=== PATIENT | female | born 1970 | race Caucasian/White ===

== ENCOUNTER 2024-03-10 10:38 | Emergency (ER) | payer MEDICAID, OTHER ==
[~2024-03-10] VITALS: Ht 157.5 cm; Wt 58.4 kg
[2024-03-10 11:06] VITALS: BP 144/88; PULSE 92; RESP 18; TEMP 98; O2SAT 97
[2024-03-10] MEDS ORDERED: AUG875T PO (12:22)
[2024-03-10] MEDS ORDERED: IBUP1TAB5 PO (12:22)
[2024-03-10] MEDS: TETANUS-DIPTH-ACEL PERTUSSIS 0.5ML SYR Tdap IM ONE (12:24)
[2024-03-10] MEDS: cefTRIAXone SOD 1,000 MG VL IM ONE (12:25)
== END 2024-03-10 12:47 | disposition home or self-care (01) ==
LOC: ER 10:38
DX: S62.616A Displaced fracture of proximal phalanx of right little finger, initial encounter for closed fracture (principal); Z88.5 Allergy status to narcotic agent; W55.01XA Bitten by cat, initial encounter; Y93.89 Activity, other specified; Y92.89 Other specified places as the place of occurrence of the external cause; Y99.8 Other external cause status
CPT/HCPCS: 29125; 73130; 90471; 90715; 96372; 99284; J0696

== ENCOUNTER 2024-08-15 07:02 | Emergency (ER) | payer MEDICAID ==
[~2024-08-15] VITALS: Ht 157.5 cm; Wt 57.9 kg
[~2024-08-15 07:02] MED LIST: AUG875T PO; IBUP1TAB5 PO
--- NOTE | 2024-08-15 08:00 | ED.PDOC ---
Zuleima. trauma (HPI) HPI Comments 54 year old female presents to the ED with chief complaint of left rib pain. Patient reports that she was moving around objects in her friend's home when her friend had accidentally dropped a karaoke machine down the stairs, hitting her left ribs 2 days ago. Patient relays that since then, she has had increased pain to the region over time. Patient denies any numbness, weakness, fall, SOB, chest pain, or further injury. Chief Complaint: Rib Pain Time Seen by MD: 07:58 Primary Care Provider: NONE Reviewed notes: Nurses Notes, Medications, Allergies Allergies: Coded Allergies: Fentanyl (Verified Allergy, Unknown, 03/10/24) Home Meds Active Scripts Ibuprofen Micronized (Ibuprofen) 600 Mg Tab, 600 MG PO TID for 10 Days, #30 TAB 0 Refills Prov:JOAN MAZARIEGOS NP 03/10/24 Amoxicillin & Pot Clavulanate (AUGMENTIN TABLET) 875 Mg Tb, 875 MG PO BID for 7 Days, #14 TAB 0 Refills Prov:JOAN MAZARIEGOS NP 03/10/24 Information Source: Patient Mode of Arrival: Wheelchair Severity: Moderate Timing: Days Duration: Since onset Prehospital treatment: None Location: Other (Left ribs) Mechanism: Direct blow Past Medical History PAST MEDICAL HISTORY: Denies Surgical History: Denies all surgeries ROLL CHANGER History: No Pertinent ROLL CHANGER History Family History Family History: Reviewed,noncontributory to illness Social History Smoker: Non-Smoker Alcohol: Denies ETOH Use Drugs: Denies Drug Use Lives In: Home Constitutional: denies: chills, diaphoresis, fatigue, fever, malaise, sweats, weakness, others EENTM: denies: blurred vision, double vision, ear bleeding, ear discharge, ear drainage, ear pain, ear ringing, eye pain, eye redness, hearing loss, mouth pain, mouth swelling, nasal discharge, nose bleeding, nose congestion, nose pain, photophobia, tearing, throat pain, throat swelling, voice changes, others Respiratory: denies: cough, hemoptysis, orthopnea, SOB at rest, shortness of breath, SOB with excertion, stridor, wheezing, others Cardiovascular: denies: chest pain, dizzy spells, diaphoresis, Dyspnea on exertion, edema, irregular heart beat, left arm pain, lightheadedness, palpitations, PND, syncope, others Gastrointestinal: denies: abdomen distended, abdominal pain, blood streaked bowels, constipated, diarrhea, dysphagia, difficulty swallowing, hematemesis, melena, nausea, poor appetite, poor fluid intake, rectal bleeding, rectal pain, vomiting, others Genitourinary: denies: abnormal vagina bleeding, burning, dyspareunia, dysuria, flank pain, frequency, hematuria, incontinence, pain, , vagina discharge, urgency, others Neurological: denies: dizziness, fainting, headache, left sided numbness, left sided weakness, numbness, paresthesia, pre-existing deficit, right sided numbness, right sided weakness, seizure, speech problems, tingling, tremors, weakness, others Musculoskeletal: reports: others (Left rib pain); denies: back pain, gout, joint pain, joint swelling, muscle pain, muscle stiffness, neck pain Integumetry: denies: bruises, change in color, change in hair/nails, dryness, laceration, lesions, lumps, rash, wounds, others Allergic/Immunocompromised: denies: Difficulty Healing, Frequent Infections, Hives, Itching, others Hematologic/Lymphatic: denies: anemia, blood clots, easy bleeding, easy bruising, swollen glands, others Endocrine: denies: excessive hunger, excessive sweating, excessive thirst, excessive urination, flushing, intolerance to cold, intolerance to heat, unexplained weight gain, unexplained weight loss, others Psychiatric: denies: anxiety, bipolar disorder, depression, hopeless, panic disorder, schizophrenia, sleepless, suicidal, others All Other Systems: Reviewed and Negative Physical Exam General Appearance: Moderate Distress, Normal HEENT: Normal ENT Inspection, PERRL/EOMI Neck: Full Range of Motion, Non-Tender, Normal, Normal Inspection Respiratory: Lungs Clear, No Accessory Muscle Use, No Respiratory Distress, Normal Breath Sounds, Other (Left side rib pain) Cardiovascular: No Edema, No JVD, No Murmur, No Gallop, Normal Peripheral Pulses, Regular Rate/Rhythm Breast Exam: Deferred Gastrointestinal: No Organomegaly, Non Tender, No Pulsatile Mass, Normal Bowel Sounds, Soft Genitalia: Deferred Pelvic: Deferred Rectal: Deferred Extremities: No calf tenderness, Normal capillary refill, Normal inspection, Normal range of motion, Non-tender, No pedal edema Musculoskeletal : Apperance: Normal Neurologic: Alert, planning consultant II-XII nml as Tested, No Motor Deficits, Normal Affect, Normal Mood, No Sensory Deficits Cerebellar Function: Normal Reflexes: Normal Skin: Dry, Normal Color, Warm Peripheral Pulses: 1+ carotid (R), 1+ carotid (L) Lymphatic: No Adenopathy Was a procedure done? Was a procedure done?: No Differential Diagnosis Multiple Trauma: Fractures, Pneumothorax, Pulmonary Contusion, Contusion Neck Injury: N/A X-Ray, Labs, Meds, VS Vital Signs Date Time Temp Pulse Resp B/P (MAP) Pulse Ox O2 Delivery O2 Flow Rate FiO2 08/15/24 09:28 97.5 86 16 110/77 (88) 97 97.5 08/15/24 08:13 15 97 Room Air* 0 21 08/15/24 07:41 110 18 97 Room Air 08/15/24 07:41 97.7 110 18 133/77 (95) 97 97.7 08/15/24 07:20 97.7 110 18 133/77 (95) 97 97.7 Current Medications Medications (Trade) Dose Ordered Sig/Carolyn Route Start Time Stop Time Status Last Admin Ketorolac Tromethamine (Toradol Injection) 60 mg ONCE ONCE IM 08/15/24 08:30 08/15/24 08:31 DC 08/15/24 08:30 Acetaminophen/ Hydrocodone Bitart ([place] 5/325MG Tab) 1 tab ONCE ONCE PO 08/15/24 10:30 08/15/24 10:31 DC 08/15/24 10:28 Left Rib XR: FINDINGS: No focal consolidation, pleural effusion or significant pneumothorax. Normal ca rdiomediastinal silhouette. Frontal view demonstrates cortical irregularity of the left 7th rib consistent with a fracture, age indeterminate. IMPRESSION: 1. Left 7th rib fracture 2. No pulmonary Contusion No pleural effusion No pneumothorax X-Ray, Labs, Meds, VS Comment Course in the emergency department eventful Patient came in complaining of severe left rib pain Chest x-ray shows seven three fracture Patient will be discharged home to follow up her PCP Time of 1ST Reevaluation: 08:58 Reevaluation 1ST: Unchanged Time of 2ND Reevaluation: 11:07 Reevaluation 2ND: Improved Consultation: PCP Patient Education/Counseling: Diagnosis, Treatment, Prognosis, Need For Follow Up Family Education/Counseling: Diagnosis, Treatment, Prognosis, Need For Follow Up, No Family Present Departure 1 Departure Time of Disposition: 11:07 Impression: Primary Impression: Musculoskeletal chest pain Additional Impression: Fracture of seven ribs of left side Disposition: HOME / SELF CARE / HOMELESS Condition: Fair Additional Instructions: Local heat and follow up with your PCP The pain of fractured ribs duration about six weeks e-Prescriptions Hydrocodone-Acetaminophen (Hydrocodone Bitartrate/AC 5-325 mg) 1 Tab Tab 1 TAB PO TID for 10 Days, #30 TAB Prov: BRUCE DICK MD 08/15/24 Diclofenac Potassium (Diclofenac Potassium) 50 Mg Tab 1 TAB PO TIDP for 10 Days, #30 TAB Prov: BRUCE DICK MD 08/15/24 Discharged With: Self Critical Care Note Critical Care Time?: No Stability Stability form required: No Heart Score Heart Score: Heart Score Response (Comments) Value History N/A 0 EKG N/A 0 Age 45-64 1 Risk Factors No known risk factors 0 Troponin N/A 0 Total 1 I personally scribed for BRUCE DICK MD ([email or web address]) on 08/15/24 at 08:00. Electronically submitted by Rick Umaña ([email or web address]). I personally scribed for BRUCE DICK MD ([email or web address]) on 08/15/24 at 08:27. Electronically submitted by Rick Umaña ([email or web address]). I personally scribed for BRUCE DICK MD ([email or web address]) on 08/15/24 at 10:58. Electronically submitted by Rick Umaña ([email or web address]). BRUCE DICK MD Aug 15, 2024 08:00
[2024-08-15 08:13] VITALS: RESP 15; O2SAT 97
[2024-08-15] MEDS: KETOROLAC TROMETH 60MG/2ML VIAL IM ONE (08:30)
[2024-08-15 09:28] VITALS: BP 110/77; PULSE 86; RESP 16; TEMP 97.5; O2SAT 97
[2024-08-15] MEDS: HYDROcodone-ACET 5/325MG TAB PO ONE (10:28)
--- NOTE | 2024-08-15 10:53 | DVH ---
EXAMINATION: XY L RIB X RAY INDICATION: trauma COMPARISON: None TECHNIQUE: Frontal view of the chest and < left ribs <>> views of the << left ribs >> ribs history FINDINGS: No focal consolidation, pleural effusion or significant pneumothorax. Normal cardiomediastinal silhou ette. Frontal view demonstrates cortical irregularity of the left 7th rib consistent with a fracture, age i ndeterminate. IMPRESSION: 1. Left 7th rib fracture 2. No pulmonary Contusion No pleural effusion No pneumothorax
[2024-08-15] MEDS ORDERED: HYDR-4902 PO (11:10)
[2024-08-15] MEDS ORDERED: DICL50TA2 PO (11:10)
== END 2024-08-15 11:25 | disposition home or self-care (01) ==
LOC: ER 07:02
DX: S22.42XA Multiple fractures of ribs, left side, initial encounter for closed fracture (principal); Z79.1 Long term (current) use of non-steroidal anti-inflammatories (NSAID); Z88.5 Allergy status to narcotic agent; W22.8XXA Striking against or struck by other objects, initial encounter; Y93.89 Activity, other specified; Y92.89 Other specified places as the place of occurrence of the external cause; Y99.8 Other external cause status
CPT/HCPCS: 71101; 96372; 99283; J1885

== ENCOUNTER 2024-08-16 08:09 | Emergency (ER) | payer MEDICAID ==
[~2024-08-16] VITALS: Ht 152.4 cm; Wt 63.0 kg
[~2024-08-16 08:09] MED LIST changes: +DICL50TA2 PO; +HYDR-4902 PO
--- NOTE | 2024-08-16 08:30 | ED.PDOC ---
History of Present Illness HPI Comments 54 year old female brought in by EMS presents to the ED with a chief complaint or rib pain onset 3 days. Per EMS, patient was seen in this ED yesterday, was prescribed pain medication, patient was not able to pick them up due to pain when she walks, is homeless. Patient states she was trying to walk to pharmacy, pain worsen, called 911. Denies any PMHx as well as fever, chills, nausea, vomiting, diarrhea, abdominal pain, chest pain, shortness of breath. No other symptoms or modifying factors present at this time. Chief Complaint: Fall Injury Time Seen by MD: 08:25 Primary Care Provider: NONE Reviewed Notes: Medications, Allergies Allergies: Coded Allergies: Fentanyl (Verified Allergy, Unknown, 03/10/24) Home Meds Active Scripts Hydrocodone-Acetaminophen (Hydrocodone Bitartrate/AC 5-325 mg) 1 Tab Tab, 1 TAB PO TID for 10 Days, #30 TAB Prov:BRUCE DICK MD 08/15/24 Diclofenac Potassium (Diclofenac Potassium) 50 Mg Tab, 1 TAB PO TIDP for 10 Days, #30 TAB Prov:BRUCE DICK MD 08/15/24 Ibuprofen Micronized (Ibuprofen) 600 Mg Tab, 600 MG PO TID for 10 Days, #30 TAB 0 Refills Prov:JOAN MAZARIEGOS NP 03/10/24 Amoxicillin & Pot Clavulanate (AUGMENTIN TABLET) 875 Mg Tb, 875 MG PO BID for 7 Days, #14 TAB 0 Refills Prov:JOAN MAZARIEGOS NP 03/10/24 Information Source: Patient, Emergency Med Personnel Mode of Arrival: EMS Severity: Moderate Timing: Days Duration: Since onset Prehospital treatment: None Past Medical History PAST MEDICAL HISTORY: Denies Surgical History: Denies all surgeries MAIL AGENT History: No Pertinent MAIL AGENT History Family History Family History: Reviewed,noncontributory to illness Social History Smoker: Non-Smoker Alcohol: Denies ETOH Use Drugs: Denies Drug Use Lives In: Homeless Constitutional: denies: chills, diaphoresis, fatigue, fever, malaise, sweats, weakness, others EENTM: denies: blurred vision, double vision, ear bleeding, ear discharge, ear drainage, ear pain, ear ringing, eye pain, eye redness, hearing loss, mouth pain, mouth swelling, nasal discharge, nose bleeding, nose congestion, nose pain, photophobia, tearing, throat pain, throat swelling, voice changes, others Respiratory: denies: cough, hemoptysis, orthopnea, SOB at rest, shortness of breath, SOB with excertion, stridor, wheezing, others Cardiovascular: denies: chest pain, dizzy spells, diaphoresis, Dyspnea on exertion, edema, irregular heart beat, left arm pain, lightheadedness, palpitations, PND, syncope, others Gastrointestinal: denies: abdomen distended, abdominal pain, blood streaked bowels, constipated, diarrhea, dysphagia, difficulty swallowing, hematemesis, melena, nausea, poor appetite, poor fluid intake, rectal bleeding, rectal pain, vomiting, others Genitourinary: denies: abnormal vagina bleeding, burning, dyspareunia, dysuria, flank pain, frequency, hematuria, incontinence, pain, , vagina discharge, urgency, others Neurological: denies: dizziness, fainting, headache, left sided numbness, left sided weakness, numbness, paresthesia, pre-existing deficit, right sided numbness, right sided weakness, seizure, speech problems, tingling, tremors, weakness, others Musculoskeletal: reports: others (rib pain); denies: back pain, gout, joint pain, joint swelling, muscle pain, muscle stiffness, neck pain Integumetry: denies: bruises, change in color, change in hair/nails, dryness, laceration, lesions, lumps, rash, wounds, others Allergic/Immunocompromised: denies: Difficulty Healing, Frequent Infections, Hives, Itching, others Hematologic/Lymphatic: denies: anemia, blood clots, easy bleeding, easy bruising, swollen glands, others Endocrine: denies: excessive hunger, excessive sweating, excessive thirst, excessive urination, flushing, intolerance to cold, intolerance to heat, unexplained weight gain, unexplained weight loss, others Psychiatric: denies: anxiety, bipolar disorder, depression, hopeless, panic disorder, schizophrenia, sleepless, suicidal, others All Other Systems: Reviewed and Negative Physical Exam General Appearance: Moderate Distress, Normal HEENT: Normal ENT Inspection, Pharynx Normal, TMs Normal Neck: Full Range of Motion, Non-Tender, Normal, Normal Inspection Respiratory: Chest Non-Tender, Lungs Clear, No Accessory Muscle Use, No Respiratory Distress, Normal Breath Sounds Cardiovascular: No Edema, No JVD, No Murmur, No Gallop, Normal Peripheral Pulses, Regular Rate/Rhythm Breast Exam: Deferred Gastrointestinal: No Organomegaly, Non Tender, No Pulsatile Mass, Normal Bowel Sounds, Soft Genitalia: Deferred Pelvic: Deferred Rectal: Deferred Extremities: No calf tenderness, Normal capillary refill, Normal inspection, Normal range of motion, Non-tender, No pedal edema Musculoskeletal : Apperance: Normal Neurologic: Alert, city wellness coordinator II-XII nml as Tested, No Motor Deficits, Normal Affect, Normal Mood, No Sensory Deficits Cerebellar Function: Normal Reflexes: Normal Skin: Dry, Normal Color, Warm Peripheral Pulses: 3+ Radial (R), 3+ Radial (L) Lymphatic: No Adenopathy Was a procedure done? Was a procedure done?: No Differential Dx Considerations may include: Muscle strain X-Ray, Labs, Meds, VS Vital Signs Date Time Temp Pulse Resp B/P (MAP) Pulse Ox O2 Delivery O2 Flow Rate FiO2 08/16/24 09:12 Room Air* 0 21 08/16/24 09:07 97.5 86 18 135/79 (97) 97 97.5 08/16/24 09:07 86 18 97 Room Air 08/16/24 08:14 98.7 87 16 156/86 (109) 98 98.7 Current Medications Medications (Trade) Dose Ordered Sig/Carolyn Route Start Time Stop Time Status Last Admin Acetaminophen/ Hydrocodone Bitart ([place] 5/325MG Tab) 1 tab ONCE ONCE PO 08/16/24 09:45 08/16/24 09:46 DC 08/16/24 09:38 Patient alert. Came in because of rib pain. Was seen here many times with the same symptom. Vitals stable. Answering questions. Ambulating. Chest x-ray reviewed does not show any acute process. Was given pain medication. Reviewed her previous visit. Explained to the patient. Was told to follow up his primary care physician. Was told to come back there is any problem. [address] [address] Ph: [phone] DIAGNOSTIC IMAGING Diagnostic Imaging Report : [id number] Signed PATIENT: JAIRON GUERREROSHUBHAMCCT: [id number] UNIT: [id number] : 1970 LOC: ER ROOM / BED: / AGE / SEX: 54 / F ADM STATUS: REG ER SERVICE 2 ORDERING PHYSICIAN: APOLINAR CASE MD PROCEDURE(s): CXRP - CHEST PORTABLE REASON: fall ORDER NUMBER(s): [id number], ACCESSION NUMBER(s): [id number] CHEST RADIOGRAPH Indication: fall, trauma, pain Technique: Single frontal view of the chest was obtained COMPARISON: None FINDINGS: Lines and Tubes: None Lungs: Clear Pleura: No effusion. No pneumothorax. Cardiomediastinal contours: Unremarkable Bones: Unremarkable IMPRESSION: No acute disease. ATED BY: KEVIN BOLAÑOS MD DICTATED DATE/TIME: 08/16/24912 SIGNED BY: KEVIN BOLAÑOS MD SIGNED DATE/TIME: 08/16/24912 CC: Time of 1ST Reevaluation: 08:55 Reevaluation 1ST: Improved Patient Education/Counseling: Diagnosis, Treatment, Prognosis Family Education/Counseling: No Family Present Additional Information The following tests were ordered, and results were reviewed by me: NATALIO COBIAN Additional Information was gathered from interviewing the following independent historians: WMS I reviewed and agreed with the following test results read by other providers: NATALIO CHEST I discussed treatment and results with medical personnel and: Patient Comprehensive systems review obtained and negative except for what is stated in the HPI. Departure 1 Departure Time of Disposition: 08:35 Impression: Primary Impression: Fracture of seven ribs of left side Qualified Codes: S22.42XS - Multiple fractures of ribs, left side, sequela Additional Impression: Musculoskeletal strain Disposition: 01 HOME / SELF CARE / HOMELESS Condition: Good Discharged With: Self Critical Care Note Critical Care Time?: No Stability Stability form required: No Heart Score Heart Score: Heart Score Response (Comments) Value History N/A 0 EKG N/A 0 Age N/A 0 Risk Factors N/A 0 Troponin N/A 0 Total 0 I personally scribed for APOLINAR CASE MD ([email or web address]) on 08/16/24 at 08:30. Electronically submitted by Hadley Dolan ([email or web address]). I personally scribed for APOLINAR CASE MD ([email or web address]) on 08/16/24 at 10:35. Electronically submitted by Jessica Devi ([email or web address]). APOLINAR CASE MD Aug 16, 2024 08:30
[2024-08-16 09:07] VITALS: BP 135/79; PULSE 86; RESP 18; TEMP 97.5; O2SAT 97
--- NOTE | 2024-08-16 09:16 | DVH ---
CHEST RADIOGRAPH Indication: fall, trauma, pain Technique: Single frontal view of the chest was obtained COMPARISON: None FINDINGS: Lines and Tubes: None Lungs: Clear Pleura: No effusion. No pneumothorax. Cardiomediastinal contours: Unremarkable Bones: Unremarkable IMPRESSION: No acute disease.
[2024-08-16] MEDS: HYDROcodone-ACET 5/325MG TAB PO ONE (09:38)
== END 2024-08-16 11:34 | disposition home or self-care (01) ==
LOC: ER 08:09 → EDBD 08:09 → ER 10:09
DX: S22.42XA Multiple fractures of ribs, left side, initial encounter for closed fracture (principal); Z59.00 Homelessness unspecified; Z79.1 Long term (current) use of non-steroidal anti-inflammatories (NSAID); Z88.5 Allergy status to narcotic agent; Z79.899 Other long term (current) drug therapy; W18.39XA Other fall on same level, initial encounter; Y93.89 Activity, other specified; Y92.89 Other specified places as the place of occurrence of the external cause; Y99.8 Other external cause status
CPT/HCPCS: 71045

== ENCOUNTER 2024-12-29 15:47 | Inpatient (IN) | payer MEDICAID ==
[~2024-12-29] VITALS: Ht 157.5 cm; Wt 62.7 kg
--- NOTE | 2024-12-29 16:08 | ED.PDOC ---
History of Present Illness HPI Comments This is a 54-year-old female without any significant past medical history presented to the ED with a chief complaint of severe since yesterday which is sharp colicky pain, 9/10, localized diffuse in nature, associated with nausea. She is homeless and had history of STD, unilateral salpingectomy and oophorecto my few years ago for precancerous condition and and last IUD Mirena was placed in 2017 which was not removed yet. She denies fever, chills, vomiting, dysuria, hematuria, altered bowel habit. Chief Complaint: Abdominal Pain Time Seen by MD: 15:48 Primary Care Provider: NONE Allergies: Coded Allergies: Fentanyl (Verified Allergy, Unknown, 03/10/24) Home Meds Active Scripts Hydrocodone-Acetaminophen (Hydrocodone Bitartrate/AC 5-325 mg) 1 Tab Tab, 1 TAB PO TID for 10 Days, #30 TAB Prov:BRUCE DICK MD 08/15/24 Diclofenac Potassium (Diclofenac Potassium) 50 Mg Tab, 1 TAB PO TIDP for 10 Days, #30 TAB Prov:BRUCE DICK MD 08/15/24 Ibuprofen Micronized (Ibuprofen) 600 Mg Tab, 600 MG PO TID for 10 Days, #30 TAB 0 Refills Prov:JOAN MAZARIEGOS NP 03/10/24 Amoxicillin & Pot Clavulanate (AUGMENTIN TABLET) 875 Mg Tb, 875 MG PO BID for 7 Days, #14 TAB 0 Refills Prov:JOAN MAZARIEGOS NP 03/10/24 Information Source: Patient Mode of Arrival: Ambulatory Severity: Moderate Timing: Hours Duration: Since onset Prehospital treatment: None Past Medical History PAST MEDICAL HISTORY: Denies Surgical History: Tonsillectomy, Denies all surgeries Surgical History (Other): Bilateral carpal tunnel surgery, unilateral salpingectomy and oophorectomy FAMILY NURSE History: No Pertinent FAMILY NURSE History, Other (Precancerous condition in the cervix) Family History Family History: Reviewed,noncontributory to illness Social History Smoker: Cigarettes, Other (Half pack per day) Alcohol: Occasionally Drugs: Methamphetamine Lives In: Homeless Constitutional: denies: chills, diaphoresis, fatigue, fever, malaise, sweats, weakness, others EENTM: denies: blurred vision, double vision, ear bleeding, ear discharge, ear drainage, ear pain, ear ringing, eye pain, eye redness, hearing loss, mouth pain, mouth swelling, nasal discharge, nose bleeding, nose congestion, nose pain, photophobia, tearing, throat pain, throat swelling, voice changes, others Respiratory: denies: cough, hemoptysis, orthopnea, SOB at rest, shortness of breath, SOB with excertion, stridor, wheezing, others Gastrointestinal: reports: abdominal pain, nausea; denies: abdomen distended, b lood streaked bowels, constipated, diarrhea, dysphagia, difficulty swallowing, hematemesis, melena, poor appetite, poor fluid intake, rectal bleeding, rectal pain, vomiting, others Genitourinary: denies: abnormal vagina bleeding, burning, dyspareunia, dysuria, flank pain, frequency, hematuria, incontinence, pain, , vagina discharge, urgency, others Neurological: denies: dizziness, fainting, headache, left sided numbness, left sided weakness, numbness, paresthesia, pre-existing deficit, right sided numbness, right sided weakness, seizure, speech problems, tingling, tremors, weakness, others Musculoskeletal: denies: back pain, gout, joint pain, joint swelling, muscle pain, muscle stiffness, neck pain, others Integumetry: denies: bruises, change in color, change in hair/nails, dryness, laceration, lesions, lumps, rash, wounds, others Allergic/Immunocompromised: denies: Difficulty Healing, Frequent Infections, Hives, Itching, others Hematologic/Lymphatic: denies: anemia, blood clots, easy bleeding, easy bruising, swollen glands, others Endocrine: denies: excessive hunger, excessive sweating, excessive thirst, excessive urination, flushing, intolerance to cold, intolerance to heat, unexplained weight gain, unexplained weight loss, others Psychiatric: denies: anxiety, bipolar disorder, depression, hopeless, panic disorder, schizophrenia, sleepless, suicidal, others Physical Exam General Appearance: Mild Distress HEENT: Normal ENT Inspection, Pharynx Normal, TMs Normal Neck: Full Range of Motion, Non-Tender, Normal, Normal Inspection Respiratory: Chest Non-Tender, Lungs Clear, No Accessory Muscle Use, No Respiratory Distress, Normal Breath Sounds Cardiovascular: No Edema, No JVD, No Murmur, No Gallop, Normal Peripheral Pulses, Regular Rate/Rhythm Breast Exam: Deferred Gastrointestinal: Diffuse, LLQ, No Organomegaly, No Pulsatile Mass, Normal Bowel Sounds, RLQ, Tenderness Genitalia: Deferred Pelvic: Deferred Rectal: Deferred Extremities: No calf tenderness, Normal capillary refill, Normal inspection, Normal range of motion, Non-tender, No pedal edema Neurologic: NOT DONE Cerebellar Function: NOT DONE Reflexes: NOT DONE Skin: NOT DONE Peripheral Pulses: 2+ carotid (R), 2+ carotid (L), 2+ femoral (R), 2+ femoral (L), 2+ dorsalis pedis (R), 2+ dorsalis pedis (L), 2+ Radial (R), 2+ Radial (L), 2+ Brachial (R), 2+ Brachial (L) Lymphatic: NOT DONE Was a procedure done? Was a procedure done?: No Differential Dx Considerations may include: PID, Acute diverticulitis, colitis, appendicitis, pyelonephritis X-Ray, Labs, Meds, VS Vital Signs Date Time Temp Pulse Resp B/P (MAP) Pulse Ox O2 Delivery O2 Flow Rate FiO2 12/29/24 17:45 72 16 122/72 12/29/24 17:21 98.0 100 18 117/69 (85) 97 98.0 12/29/24 16:15 126 18 119/76 12/29/24 15:49 98.6 126 18 119/76 97 98.6 Lab Test 12/29/24 16:22 Range/Units White Blood Count 15.1 H 4.4-10.8 10^3/uL Red Blood Count 4.87 4.0-5.20 10^6/uL Hemoglobin 14.9 12.2-16.2 g/dL Hematocrit 44.2 36.0-46.0 % Mean Corpuscular Volume 90.8 80.0-100.0 fL Mean Corpuscular Hemoglobin 30.7 28.0-32.0 pg Mean Corpuscular Hemoglobin Concent 33.8 32.0-36.0 g/dL Red Cell Distribution Width 12.9 11.8-14.3 % Platelet Count 325 140-450 10^3/uL Mean Platelet Volume 6.6 L 6.9-10.8 fL Neutrophils (%) (Auto) 84.7 H 37.0-80.0 % Lymphocytes (%) (Auto) 8.4 L 10.0-50.0 % Monocytes (%) (Auto) 6.4 0.0-12.0 % Eosinophils (%) (Auto) 0.0 0.0-7.0 % Basophils (%) (Auto) 0.5 0.0-2.0 % Neutrophils # (Auto) 12.7 H 1.6-8.6 10 ^3/uL Lymphocytes # (Auto) 1.3 0.4-5.4 10 ^3/uL Monocytes # (Auto) 1.0 0-1.3 10 ^3/uL Eosinophils # (Auto) 0 0-0.8 10 ^3/uL Basophils # (Auto) 0.1 0-0.2 10 ^3/uL Nucleated Red Blood Cells 0.1 % Sodium Level 133 L 136-145 mmol/L Potassium Level 3.5 3.5-5.1 mmol/L Chloride Level 98 98-107 mmol/L Carbon Dioxide Level 29 20-31 mmol/L Anion Gap 6 5-15 Blood Urea Nitrogen 11 9-23 mg/dL Creatinine 0.78 0.550-1.02 mg/dL Glomerular Filtration Rate Calc 90 >90 mL/min BUN/Creatinine Ratio 14.1 10.0-20.0 Serum Glucose 97 74-106 mg/dL Calcium Level 9.5 8.7-10.4 mg/dL Lipase 44 12-53 U/L Current Medications Medications (Trade) Dose Ordered Sig/Carolyn Route Start Time Stop Time Status Last Admin Ondansetron HCl (Zofran) 4 mg ONCE ONCE IV 12/29/24 16:15 12/29/24 16:16 DC 12/29/24 16:15 Morphine Sulfate 4 mg ONCE ONCE IV 12/29/24 16:15 12/29/24 16:16 DC 12/29/24 16:15 Sodium Chloride 500 ml @ 500 mls/hr Q1H ONCE IVB 12/29/24 16:15 12/29/24 17:14 DC 12/29/24 16:15 X-Ray, Labs, Meds, VS Comment ORDERING PHYSICIAN: KUAMR ROJAS RESIDENT PROCEDURE(s): ABPL - CT AB PEL WO CON-NO ORAL OR IV REASON: Severe abdominal pain ORDER NUMBER(s): [id number], ACCESSION NUMBER(s): [id number] Indication: Severe abdominal pain Technique: CT axial images of the abdomen and pelvis are obtained without contr ast. Coronal and sagittal reformats were obtained. Radiation Dose Information: CTDI volume is 6 mGy. Dose-length product is 289 mGy*cm Comparison: None FINDINGS: There is limited interpretation of the abdomen and pelvis without administration of intravenous contrast. Lung bases demonstrate no pleural effusion. Adrenal glands, spleen, pancreas and liver unremarkable in shape. No CT evidence for cholelithiasis. Right kidney demonstrates prominence of the right renal cortex/ renal edema with right perinephric stranding. No obstructing calculus identified. Left kidney demonstrates no hydronephrosis / nephrolithiasis. Stomach is partially distended. Small bowel loops are moderately distended. Moderate volume stool within the colon. Normal appendix. Retroperitoneal lymph nodes measuring up to 11 mm. There is an intrauterine device. Abnormal thickening of the endometrial complex to 21 mm. There is extensive air/gas foci within the uterus/endometrium. There is surrounding pelvic inflammatory stranding. 8 mm radiopaque density / calcification in the region of the lower endometrial/endocervical region No inguinal lymphadenopathy. Moderate lumbar degenerative disc disease most pronounced at L5-S1. Severe neural foraminal stenosis L5-S1. IMPRESSION: Limited evaluation without contrast. Intrauterine device, abnormally thickened endometrial complex up to 21 mm with extensive fluid and gas foci, surrounding pelvic inflammatory stranding. These constellation of findings concerning for infection/abscess / infected IUD /pelvic inflammatory disease. Recommend STAT economic geographer and ID consultation. 8 mm radiopaque density / calcification in the region of the lower endometrial/endocervical [id number] Right renal enlargement/ edema and perinephric stranding which could represent resultant urinary tract infection/pyelonephritis. Retroperitoneal lymphadenopathy. Findings discussed with Dr Harvey at 12/29/2024 06:36 PM, and acknowledged receipt and understanding of the findings. Images Reviewed?: Images reviewed and evaluated by me Time of 1ST Reevaluation: 18:50 Reevaluation 1ST: Unchanged Patient Education/Counseling: Diagnosis, Treatment Family Education/Counseling: No Family Present Comments This is a 54-year-old female with past medical history of STD and IUD insertion in 1016 presented to the ED with chief complaint of severe lower abdominal pain, nausea, diarrhea since yesterday prior to this visit. Physical examination demonstrated tender right lower quadrant and pelvic examination was not possible as patient was in lobby sitting in the chair. CBC showed elevated WBC count with left shift BMP revealed normal study Initially patient was given IV bolus, morphine 2 mg IV once, ondansetron [address] abdomen pelvis without contrast demonstrated Retroperitoneal lymph nodes measuring up to 11 mm. There is an intrauterine device. Abnormal thickening of the endometrial complex to 21 mm. There is extensive air/gas foci within the uterus/endometrium. There is surrounding pelvic inflammatory stranding. 8 mm radiopaque density / calcification in the region of the lower endometrial/endocervical region. OBGYN Dr. Pierce is consulted stat and discussed the case with her and she recommended pelvic exam with speculum examination of the cervix, to remove the IUD if possible. Blood culture and lactic acid are pending now. IV ceftriaxone 1 g once given. Discussed with the patient about the imaging and further evaluation and management plan. Patient need to be admitted to continue inpatient management of pelvic abscess and pyelonephritis SEPSIS Sepsis Screen Date sepsis recognized/suspect: Dec 29, 2024 Time Sepsis recognized/suspect: 1548 Recent Procedure: No On Antibiotic Therapy: No Respiratory Rate >20: No Heart Rate >90: Yes Temp<36 C (96.8 F) or >38.3 C: No SBP <90 or MAP <65 mmHG: No New Acute Mental Status Change: No Is the patient on CPAP, BIPAP,: No Physician Orders Urinalysis (12/29/24 16:04) Ct Ab Pel Wo Con-No Oral Or Iv (12/29/24 16:04) Chest Portable (12/29/24 16:04) Test, Urine (12/29/24 16:04) Drug Screen (12/29/24 17:24) Lactic Acid W/ Reflex Order (12/29/24 18:45) Blood Culture (12/29/24 18:45) * Tobacco Conditioner Consultation (12/29/24 18:46) Ceftriaxone 1gm/50ml D5w (Rocephin) (12/29/24 19:00) Vital Signs Date Time Temp Pulse Resp B/P (MAP) Pulse Ox O2 Delivery O2 Flow Rate FiO2 12/29/24 17:45 72 16 122/72 12/29/24 17:21 98.0 100 18 117/69 (85) 97 98.0 12/29/24 16:15 126 18 119/76 12/29/24 15:49 98.6 126 18 119/76 97 98.6 Laboratory Tests Test 12/29/24 16:22 White Blood Count 15.1 10^3/uL (4.4-10.8) H Medications Medications Dose Ordered Sig/Carolyn Route Start Time Stop Time Status Last Admin Dose Admin Morphine Sulfate 4 mg ONCE ONCE IV 12/29/24 16:15 12/29/24 16:16 DC 12/29/24 16:15 Ondansetron HCl 4 mg ONCE ONCE IV 12/29/24 16:15 12/29/24 16:16 DC 12/29/24 16:15 Sodium Chloride 500 ml @ 500 mls/hr Q1H ONCE IVB 12/29/24 16:15 12/29/24 17:14 DC 12/29/24 16:15 Departure 1 Departure Time of Disposition: 19:17 Impression: Primary Impression: Pelvic abscess Additional Impression: Pyelonephritis Disposition: 30 STILL A PATIENT Admit to: Med Surg Condition: Guarded Critical Care Note Critical Care Time?: No Stability Stability form required: KUMAR Hart RESIDENT Dec 29, 2024 16:08
[2024-12-29] MEDS: MORPHINE SULFATE 4 MG/ML SYR/VIAL IV ONE (16:15)
[2024-12-29] MEDS: SODIUM CHLORIDE 0.9% 500 ML IVB ONE (16:15)
[2024-12-29] MEDS: ONDANSETRON HCL 4 MG/2 ML VIAL IV ONE (16:15)
[2024-12-29 16:41] LABS: Hematocrit 44.2 % (36.0-46.0); Hemoglobin 14.9 g/dL (12.2-16.2); Mean Corpuscular Hemoglobin 30.7 pg (28.0-32.0); Mean Corpuscular Volume 90.8 fL (80.0-100.0); Nucleated Red Blood Cells % 0.1 %
[2024-12-29 16:52] LABS: Anion Gap 6 (5-15); Carbon Dioxide 29 mmol/L (20-31); Chloride 98 mmol/L (98-107); Potassium 3.5 mmol/L (3.5-5.1)
[2024-12-29 16:53] LABS: Calcium 9.5 mg/dL (8.7-10.4)
[2024-12-29 16:58] LABS: BUN/Creatinine Ratio 14.1 (10.0-20.0); Blood Urea Nitrogen 11 mg/dL (9-23); Glucose 97 mg/dL (74-106); Lipase 44 U/L (12-53)
[2024-12-29 17:01] LABS: Sodium 133 mmol/L (136-145)
--- NOTE | 2024-12-29 18:25 | DVH ---
CHEST RADIOGRAPH Indication: Shortness of breath Technique: Single frontal view of the chest was obtained Comparison: XY CHEST PORTABLE on DOS: 08/16/24, XY L RIB X RAY on DOS: 08/15/24 FINDINGS: Lines and Tubes: None Lungs: No focal consolidation. Pleura: No effusion. No pneumothorax. Cardiomediastinal contours: Unremarkable Bones: No acute osseous abnormality. IMPRESSION: 1. No acute cardiopulmonary disease.
--- NOTE | 2024-12-29 18:38 | DVH ---
Indication: Severe abdominal pain Technique: CT axial images of the abdomen and pelvis are obtained without contrast. Coronal and sagit rose reformats were obtained. Radiation Dose Information: CTDI volume is 6 mGy. Dose-length product is 289 mGy*cm Comparison: None FINDINGS: There is limited interpretation of the abdomen and pelvis without administration of intravenous contr ast. Lung bases demonstrate no pleural effusion. Adrenal glands, spleen, pancreas and liver unremarkable in shape. No CT evidence for cholelithiasis. Right kidney demonstrates prominence of the right renal cortex/ renal edema with right perinephric st randing. No obstructing calculus identified. Left kidney demonstrates no hydronephrosis / nephrolithiasis. Stomach is partially distended. Small bowel loops are moderately distended. Moderate volume stool within the colon. Normal appendix. Retroperitoneal lymph nodes measuring up to 11 mm. There is an intrauterine device. Abnormal thicken ing of the endometrial complex to 21 mm. There is extensive air/gas foci within the uterus/endometriu m. There is surrounding pelvic inflammatory stranding. 8 mm radiopaque density / calcification in th e region of the lower endometrial/endocervical region No inguinal lymphadenopathy. Moderate lumbar degenerative disc disease most pronounced at L5-S1. Severe neural foraminal stenosis L5-S1. IMPRESSION: Limited evaluation without contrast. Intrauterine device, abnormally thickened endometrial complex up to 21 mm with extensive fluid and ga s foci, surrounding pelvic inflammatory stranding. These constellation of findings concerning for in fection/abscess / infected IUD /pelvic inflammatory disease. Recommend STAT executive staff assistant and ID consultation. 8 mm radiopaque density / calcification in the region of the lower endometrial/endocervical Right renal enlargement/ edema and perinephric stranding which could represent resultant urinary trac t infection/pyelonephritis. Retroperitoneal lymphadenopathy. Findings discussed with Dr Harvey at 12/29/2024 06:36 PM, and acknowledged receipt and understanding of the findings. ..
[2024-12-29] MEDS: KETOROLAC TROMETH 30 MG/ML 1ML VIAL IV STA (20:21)
[2024-12-29] MEDS: KETOROLAC TROMETH 30 MG/ML 1ML VIAL ONE (20:21)
--- NOTE | 2024-12-29 20:22 | DVHINCON2 ---
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 hx of chlamydia infection in high school Last PAP: never Last Mammogram: never Last sexual intercourse: 2 weeks ago OB hx: , section for arrest of dilation at 6cm, PPH 1 week after, hx of blood transfusion with hgb of 2 PMH: denies PSH: carpel tunnel surgery, oophorectomy side unspecified, salpingectomy side unspecified SOC: IV meth use (last used 2-3 weeks ago) and smokes marijuana PSYCH: denies Allergies: Coded Allergies: Fentanyl (Verified Allergy, Unknown, 03/10/24) Home Meds Active Scripts Hydrocodone-Acetaminophen (Hydrocodone Bitartrate/AC 5-325 mg) 1 Tab Tab, 1 TAB PO TID for 10 Days, #30 TAB Prov:BRUCE DICK MD 08/15/24 Diclofenac Potassium (Diclofenac Potassium) 50 Mg Tab, 1 TAB PO TIDP for 10 Days, #30 TAB Prov:BRUCE DICK MD 08/15/24 Ibuprofen Micronized (Ibuprofen) 600 Mg Tab, 600 MG PO TID for 10 Days, #30 TAB 0 Refills Prov:JOAN MAZARIEGOS NP 03/10/24 Amoxicillin & Pot Clavulanate (AUGMENTIN TABLET) 875 Mg Tb, 875 MG PO BID for 7 Days, #14 TAB 0 Refills Prov:JOAN MAZARIEGOS NP 03/10/24 Current Medications Current Medications Medications (Trade) Dose Ordered Sig/Carolyn Route PRN Reason Start Time Stop Time Status Last Admin Ketorolac Tromethamine (Toradol Injection) 30 mg STAT STAT IV 12/29/24 19:38 12/29/24 19:54 DC Review of Systems negative Vital Signs Vital Signs Date Time Temp Pulse Resp B/P (MAP) Pulse Ox O2 Delivery O2 Flow Rate FiO2 12/29/24 17:45 72 16 122/72 12/29/24 17:21 98.0 97 98.0 Physical Exam Breast bilaterally: WNL Abdomen: soft, non-distended GI: has 5 soft BM daily No menses with Mirena IUD Pelvic: cervix pink, mirena IUD removed with ring forcep Labs/Diagnostic Data Labs Test 12/29/24 19:07 12/29/24 16:22 Range/Units Lactic Acid Level 0.7 0.4-2.0 mmol/L White Blood Count 15.1 H 4.4-10.8 10^3/uL Red Blood Count 4.87 4.0-5.20 10^6/uL Hemoglobin 14.9 12.2-16.2 g/dL Hematocrit 44.2 36.0-46.0 % Mean Corpuscular Volume 90.8 80.0-100.0 fL Mean Corpuscular Hemoglobin 30.7 28.0-32.0 pg Mean Corpuscular Hemoglobin Concent 33.8 32.0-36.0 g/dL Red Cell Distribution Width 12.9 11.8-14.3 % Platelet Count 325 140-450 10^3/uL Mean Platelet Volume 6.6 L 6.9-10.8 fL Neutrophils (%) (Auto) 84.7 H 37.0-80.0 % Lymphocytes (%) (Auto) 8.4 L 10.0-50.0 % Monocytes (%) (Auto) 6.4 0.0-12.0 % Eosinophils (%) (Auto) 0.0 0.0-7.0 % Basophils (%) (Auto) 0.5 0.0-2.0 % Neutrophils # (Auto) 12.7 H 1.6-8.6 10 ^3/uL Lymphocytes # (Auto) 1.3 0.4-5.4 10 ^3/uL Monocytes # (Auto) 1.0 0-1.3 10 ^3/uL Eosinophils # (Auto) 0 0-0.8 10 ^3/uL Basophils # (Auto) 0.1 0-0.2 10 ^3/uL Nucleated Red Blood Cells 0.1 % Sodium Level 133 L 136-145 mmol/L Potassium Level 3.5 3.5-5.1 mmol/L Chloride Level 98 98-107 mmol/L Carbon Dioxide Level 29 20-31 mmol/L Anion Gap 6 5-15 Blood Urea Nitrogen 11 9-23 mg/dL Creatinine 0.78 0.550-1.02 mg/dL Glomerular Filtration Rate Calc 90 >90 mL/min BUN/Creatinine Ratio 14.1 10.0-20.0 Serum Glucose 97 74-106 mg/dL Calcium Level 9.5 8.7-10.4 mg/dL Lipase 44 12-53 U/L Admitting Diagnosis: suspect post-menopausal BV suspected IUD in place, strings seen Leukocytosis suspect secondary to dehydration, UTI Plan vaginal culture collected for anaerobic/aerobic GC/CT swab/urine collected HIV, TPPA, Hep B/C, FSH, estradiol labs drawn Mirena IUD removed Pt high risk for cervical cancer, recommend PAP and mammogram outpatient CARLOS JAYLAN is co-managing this consult with Dr. Pierce for today 12/29/24. Dr. Pierce will see pt herself tmrw on 12/30/24. Plan discussed with: Patient Visit Coding OBGYN Date of Service: Dec 29, 2024 Billing Provider: RANI MURPHY CNM [facility] Common Visit Codes: CONSULTATION ONLY [facility] Consultation Codes: [id number] CONSULT <110MIN RANI MURPHY CNM Dec 29, 2024 20:22
[2024-12-29] MEDS: LIDOCAINE 2%HCL (LOCAL ANESTH.) INJ 10ml MDV ONE (21:26)
--- NOTE | 2024-12-29 21:48 | DVHHPRES ---
History of Present Illness Resident Creating Document: RYAN GARCIA RESIDENT History of Present Illness Ms. Ricci Tipton is a 54 year old female without any significant past medical history presented to the ED with a chief complaint of 1 day of abdominal pain 9/10, cramp like, localized in the pelvic area, no radiation, associated with low grade fever and chills. The patient took ibuprofen with minimal relief of symptoms. The patient reports STD in the past, she had placed a IUD (Mirena) in 2017, and has not being removed since then. The patient denies vaginal discharge, spotting, bleeding, vomiting, dysuria, hematuria, changes in bowel movements. On the initial evaluation abd/pelv CT Scan showed Intrauterine device, abnormally thickened endometrial complex up to 21 mm with extensive fluid and gas foci, surrounding pelvic inflammatory stranding. These constellation of findings concerning for infection/abscess / infected IUD /pelvic inflammatory disease. 8 mm radiopaque density / calcification in the region of the lower endometrial/endocervical region. Right renal enlargement/ edema and perinephric stranding which could represent resultant urinary tract infection/pyelonephritis and retroperitoneal lymphadenopathy. Labs showed WBC 15.1x10e3/Ul, Neutrophils 12.7 x10e3/Ul. Systems Specialist consult was requested. 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 ) Past Surgical History: Other (Unilateral Oophorectomy ), Tonsillectomy Family History: None Smoke: <1 pack per day ALCOHOL: occassional Drugs: Other (Methamphetamines ) Lives: Homeless Review of Systems Constitutional: Yes: Fever, Chills, Weakness, Malaise; No: Sweats, Other Eyes: No: Pain, Vision change, Conjunctivae inflammation, Eyelid inflammation, Other, Redness ENT: No: Ear pain, Ear discharge, Nose pain, Nose discharge, Nose congestion, Mouth pain, Mouth swelling, Throat pain, Throat swelling, Other Respiratory: No: Cough, Dry, Shortness of breath, SOB with excertion, Wheezing, Hemoptysis, Pleuritic Pain, Sputum, Wheezing, Other Cardiovascular: No: Chest Pain, Palpitations, Orthopnea, Paroxysmal Noc. Dyspnea, Edema, Lt Headedness, Other Gastrointestinal: No: Nausea, Vomiting, Abdominal Pain, Diarrhea, Constipation, Melena, Hematochezia, Other Genitourinary: No Dysuria, No Frequency, No Incontinence, No Hematuria, No Retention, No Other Musculoskeletal: No: other, neck pain, shoulder pain, arm pain, back pain, hand pain, leg pain, foot pain Skin: No: Rash, Lesions, Jaundice, Bruising, Other Neurological: No: Weakness, Numbness, Incoordination, Change in speech, Confusion, Seizures, Other Allergies: Coded Allergies: Fentanyl (Verified Allergy, Unknown, 03/10/24) Exam Vital Signs Vital Signs Date Time Temp Pulse Resp B/P (MAP) Pulse Ox O2 Delivery O2 Flow Rate FiO2 12/29/24 17:45 72 16 122/72 12/29/24 17:21 98.0 97 98.0 General Appearance: Alert, Oriented X3, Cooperative, mild distress HEENT: Atraumatic, Mucous membr. moist/pink Respiratory: Clear to auscultation, Normal air movement Cardiovascular: Regular rate, Normal S1, Normal S2, No murmurs Abdominal: Normal bowel sounds, Soft, No hepatospenomegaly, Other (Tenderness in the pelvic area to deep palpation. ) Extremities: No clubbing, No cyanosis, No edema, Normal pulses Skin: No rashes, No breakdown, No significant lesion Neuro: Normal gait, Normal speech, Strength at 5/5 X4 ext, Normal tone, Sensation intact, Cranial nerves 3-12 NL Psych/Mental Status: Mental status NL, Mood NL Labs/Xrays Labs Test 12/29/24 20:16 12/29/24 19:07 12/29/24 16:22 Range/Units Lactic Acid Level 0.7 0.4-2.0 mmol/L White Blood Count 15.1 H 4.4-10.8 10^3/uL Red Blood Count 4.87 4.0-5.20 10^6/uL Hemoglobin 14.9 12.2-16.2 g/dL Hematocrit 44.2 36.0-46.0 % Mean Corpuscular Volume 90.8 80.0-100.0 fL Mean Corpuscular Hemoglobin 30.7 28.0-32.0 pg Mean Corpuscular Hemoglobin Concent 33.8 32.0-36.0 g/dL Red Cell Distribution Width 12.9 11.8-14.3 % Platelet Count 325 140-450 10^3/uL Mean Platelet Volume 6.6 L 6.9-10.8 fL Neutrophils (%) (Auto) 84.7 H 37.0-80.0 % Lymphocytes (%) (Auto) 8.4 L 10.0-50.0 % Monocytes (%) (Auto) 6.4 0.0-12.0 % Eosinophils (%) (Auto) 0.0 0.0-7.0 % Basophils (%) (Auto) 0.5 0.0-2.0 % Neutrophils # (Auto) 12.7 H 1.6-8.6 10 ^3/uL Lymphocytes # (Auto) 1.3 0.4-5.4 10 ^3/uL Monocytes # (Auto) 1.0 0-1.3 10 ^3/uL Eosinophils # (Auto) 0 0-0.8 10 ^3/uL Basophils # (Auto) 0.1 0-0.2 10 ^3/uL Nucleated Red Blood Cells 0.1 % Sodium Level 133 L 136-145 mmol/L Potassium Level 3.5 3.5-5.1 mmol/L Chloride Level 98 98-107 mmol/L Carbon Dioxide Level 29 20-31 mmol/L Anion Gap 6 5-15 Blood Urea Nitrogen 11 9-23 mg/dL Creatinine 0.78 0.550-1.02 mg/dL Glomerular Filtration Rate Calc 90 >90 mL/min BUN/Creatinine Ratio 14.1 10.0-20.0 Serum Glucose 97 74-106 mg/dL Calcium Level 9.5 8.7-10.4 mg/dL Lipase 44 12-53 U/L Treponema pallidum Antibody Non-reactive Negative HIV (1&2) Antibody Negative Negative SEPSIS Sepsis Screen Date sepsis recognized/suspect: Dec 29, 2024 Time Sepsis recognized/suspect: 1549 Recent Procedure: No On Antibiotic Therapy: No Respiratory Rate >20: No Heart Rate >90: Yes Temp<36 C (96.8 F) or >38.3 C: No SBP <90 or MAP <65 mmHG: No New Acute Mental Status Change: No Is the patient on CPAP, BIPAP,: No Physician Orders Urinalysis (12/29/24 16:04) Ct Ab Pel Wo Con-No Oral Or Iv (12/29/24 16:04) Chest Portable (12/29/24 16:04) Test, Urine (12/29/24 16:04) Drug Screen (12/29/24 17:24) Blood Culture (12/29/24 18:45) * Systems Specialist Consultation (12/29/24 18:46) Bacterial Culture Vaginal (12/29/24 19:14) Hepatitis C Antibody (12/29/24 19:14) Hepatitis B Surface Antigen (12/29/24 19:14) Chlamydia/Gc Amplification (12/29/24 19:38) Follicle Stimulating Hormone (12/29/24 21:10) Estradiol (12/29/24 21:10) Vital Signs Date Time Temp Pulse Resp B/P (MAP) Pulse Ox O2 Delivery O2 Flow Rate FiO2 12/29/24 17:45 72 16 122/72 12/29/24 17:21 98.0 100 18 117/69 (85) 97 98.0 12/29/24 16:15 126 18 119/76 12/29/24 15:49 98.6 126 18 119/76 97 98.6 Laboratory Tests Test 12/29/24 16:22 12/29/24 19:07 White Blood Count 15.1 10^3/uL (4.4-10.8) H Lactic Acid Level 0.7 mmol/L (0.4-2.0) Medications Medications Dose Ordered Sig/Carolyn Route Start Time Stop Time Status Last Admin Dose Admin Ketorolac Tromethamine 30 mg STAT STAT IV 12/29/24 19:38 12/29/24 19:54 DC 12/29/24 20:21 30 MG Morphine Sulfate 4 mg ONCE ONCE IV 12/29/24 16:15 12/29/24 16:16 DC 12/29/24 16:15 4 MG Ondansetron HCl 4 mg ONCE ONCE IV 12/29/24 16:15 12/29/24 16:16 DC 12/29/24 16:15 4 MG Sodium Chloride 500 ml @ 500 mls/hr Q1H ONCE IVB 12/29/24 16:15 12/29/24 17:14 DC 12/29/24 16:15 500 MLS/HR Assessment/Plan Assessment/Plan #Endometritis likely due to IUD retention/infection #Sepsis likely due to pelvic abscess Leukocytosis Tachycardic WBC 15.1x10e3/uL Clindamycin IV Zocyn IV Blood cultures Vaginal Secretion cultures Systems Specialist consult: remove IUD #Hyponatremia IV fluids: NS 75cc/hr #History of STD Chlamydia/Neisseria serology panel pending. Counseling STD prevention. #Methamphetamine abuse disorder #Homelessness #Smoker Counseling smoke and drug sensation, life style modifications >27 min Social service consult for homelessness resources. Regular diet DVT prophylaxis PUD prophylaxis Protonic Goals of care discussed with the patient > 35 min. Discussed plan of care with Dr. Dozier Code status: Full code PCP:No established, F/U Discharge clinic Plan discussed with: Patient, the patient agrees with the plan. Plan discussed with: Patient Common Visit Codes: [id number] INP/OBS CARE (HIGH) Secondary Visit Codes: [id number]-[id number] CARE PLAN 30 MINUTES RYAN GARCIA RESIDENT Dec 29, 2024 21:48
[2024-12-29] MEDS: HYDROmorphone HCL 2 MG/ML VL/or syr IV STA (21:50)
[2024-12-29] MEDS: HYDROmorphone HCL 2 MG/ML VL/or syr ONE (21:54)
[2024-12-29] MEDS: LIDOCAINE 2%HCL (LOCAL ANESTH.) INJ 10ml MDV IJ STA (21:56)
[2024-12-29] MEDS ORDERED: ONDANSETRON HCL 4 MG/2 ML VIAL IV PRN (22:00)
[2024-12-29 22:28] LABS: Urine Protein, UAD Negative (Negative)
[2024-12-29 22:38] LABS: Opiate Scree,Urine Neg (NEGATIVE)
[2024-12-29 22:50] LABS: Amphetamine Screen, Urine Pos (NEGATIVE); Barbiturate Scree,Urine Neg (NEGATIVE); Benzodiazephine Screen, Urine Neg (NEGATIVE); Cannabinoid Screen, Urine Neg (NEGATIVE); Cocaine Screen, Urine Neg (NEGATIVE); Phencyclidine Screen, Urine Neg (NEGATIVE)
[2024-12-30] MEDS: cefTRIAXone 1GM/50ML D5W 50 ML IV ONE (01:57)
[2024-12-30] MEDS: SODIUM CHLORIDE 0.9% 1,000 ML IV ONE (01:57)
[2024-12-30] MEDS: HYDROcodone-ACET 5/325MG TAB PO PRN (03:23)
[2024-12-30] MEDS: CLINDAMYCIN 900MG IV 50 ML IV SCH (03:32)
[2024-12-30] MEDS: AMPICILLIN & SULBACTAM SODIUM 3 GM in SODIUM CHL 0.9% 100 ML IV SCH (03:37)
[2024-12-30 04:52] LABS: Albumin 3.8 g/dL (3.2-4.8); Alkaline Phosphatase 101 U/L (46-116); Anion Gap 7 (5-15); BUN/Creatinine Ratio 14.7 (10.0-20.0); Bilirubin, Total 0.7 mg/dL (0.2-1.0); Blood Urea Nitrogen 11 mg/dL (9-23); Carbon Dioxide 24 mmol/L (20-31); Chloride 102 mmol/L (98-107); Total Protein 6.5 g/dL (5.7-8.2)
[2024-12-30 04:54] LABS: Alanine Aminotransferase 54 U/L (7-40); Calcium 8.3 mg/dL (8.7-10.4); Glucose 196 mg/dL (74-106); Potassium 3.1 mmol/L (3.5-5.1); Sodium 133 mmol/L (136-145)
[2024-12-30 06:57] LABS: Hematocrit 40.0 % (36.0-46.0); Hemoglobin 13.8 g/dL (12.2-16.2); Mean Corpuscular Hemoglobin 31.4 pg (28.0-32.0); Mean Corpuscular Volume 91.1 fL (80.0-100.0); Nucleated Red Blood Cells % 0.0 %
[2024-12-30] MEDS: PANTOPRAZOLE 40 MG TAB PO SCH (09:51)
[2024-12-30] MEDS: POTASSIUM CHL 20 Meq TABLET PO ONE (09:52)
[2024-12-30 09:59] VITALS: PULSE 104; RESP 20; O2SAT 95
[2024-12-30] MEDS ORDERED: ONDANSETRON HCL 4 MG/2 ML VIAL IV PRN (10:15)
[2024-12-30] MEDS: DOXYCYCLINE 100MG/100ML 100 ML IV SCH (10:53)
--- NOTE | 2024-12-30 12:11 | DVHPN2 ---
Chief Complaints Patient reports: No new complaints Nursing reports: No new complaints Objective Vitals Vital Signs Date Time Temp Pulse Resp B/P (MAP) Pulse Ox O2 Delivery O2 Flow Rate FiO2 12/30/24 09:59 104 20 95 Room Air* 0 21 12/30/24 09:58 98.1 114/67 (83) 98.1 Medications Current Medications Medications (Trade) Dose Ordered Sig/Carolyn Route PRN Reason Start Time Stop Time Status Last Admin Acetaminophen/ Hydrocodone Bitart ([place] 5/325MG Tab) 1 tab Q4HP PRN PO MODERATE PAIN (4-6 PAIN SCALE) 12/29/24 22:00 12/30/24 09:51 Cefotaxime Sodium 2 gm/Dextrose 100 ml @ 100 mls/hr Q8HR IV 12/30/24 14:00 UNV Doxycycline Hyclate 100 ml @ 50 mls/hr Q12H IV 12/30/24 10:15 12/30/24 10:53 Morphine Sulfate 4 mg Q4HPRN PRN IV SEVERE PAIN (7-10 PAIN SCALE) 12/29/24 22:00 Ondansetron HCl (Zofran) 4 mg Q4HPRN PRN IV NAUSEA / VOMITING 12/30/24 10:15 Pantoprazole Sodium (Protonix Tablet) 40 mg DAILY PO 12/30/24 10:00 12/30/24 09:51 Sodium Chloride 1,000 ml @ 125 mls/hr Q8H IV 12/30/24 07:45 Lungs: Normal Cardiovascular: Normal Abdominal: Soft Extremities: Normal Studies Laboratory Tests 12/30/24 06:25 12/30/24 04:10 Test 12/30/24 04:10 Range/Units Serum Glucose 196 H 74-106 mg/dL Ass/Plan Assessment s/p iud removal ,pid dehydration sepsis meth user Plan cultures done will change abx to doxy 100mg iv bid and cefotetan 2g iv q12 awiat hiv,hep b and c,rpr results supportive care Visit Coding OBGYN Date of Service: Dec 30, 2024 Billing Provider: THOM HOPKINS DO CIGAR TOBACCO PROCESSING SUPERVISOR Common Visit Codes: [id number] INP/OBS CARE(HIGH) CIGAR TOBACCO PROCESSING SUPERVISOR Consultation Codes: [id number] CONSULT <80MIN THOM HOPKINS DO Dec 30, 2024 12:11
[2024-12-30] MEDS ORDERED: CEFOTAXIME SODIUM 2 GM in D5W 5% 100 ML IV SCH (14:00)
--- NOTE | 2024-12-30 14:19 | DVHPNRES ---
Progress Note Date Seen: Dec 30, 2024 Resident Creating Document: SANDRO MCMAHON RESIDENT Medical Necessity Reason Pt with a Central, PICC or Fol: No Subjective Review of Systems The patient is a 54 year old female who presented to the ER with the complaint of intractable abdominal pain for a day. It was a 9/10 on intensity and localized to the lower abdomen and pelvic area. It was associated with fever and chills. The patient took ibuprofen with minimal relief of symptoms. The patient has a history of placement of IUD 8 years ago which was never removed or replaced. She denies any discharge, bleeding or change in bowel movement. CT abdomen was done in the hospital which showed endometrial infection or PID and renal edema with perinephric stranding. Labs showed raised WBCs. RN RESEARCH was consulted and the IUD was removed. Past medical history: B/L carpal tunnel syndrome, history of STDs Past surgical history: tonsillectomy, oophorectomy on one side, section in 2009 smoking: <1 pack per day drugs: iv methamphetamine social history: homeless Allergies: fentanyl Patient seen and examined at bedside. Patient is alert and oriented to time, place person and responding to all questions. Eyes: No Pain, No Vision change, No Conjunctivae inflammation, No Eyelid inflammation, No Other, No Redness ENT: No Ear pain, No Ear discharge, No Nose pain, No Nose discharge, No Nose congestion, No Mouth pain, No Mouth swelling, No Throat pain, No Throat swelling, No Other Cardiovascular: No Chest Pain, No Palpitations, No Orthopnea, No Paroxysmal No Dyspnea, No Edema, No Lt Headedness, No Other Respiratory: No Cough, No Dry, No Shortness of breath, No SOB with exertion, No Wheezing, No Hemoptysis, No Pleuritic Pain, No Sputum, No Other Gastrointestinal: Abdominal Pain, No Diarrhea, No Constipation, No Melena, No Hematochezia, No Other Genitourinary: No Dysuria, No Frequency, No Incontinence, No Hematuria, No Retention, No Other General Appearance: Cooperative. Well developed. Well nourished, moderate distress Head Exam: Normal inspection Neck Exam: Normal inspection. Non-tender. Normal alignment Pulmonary/Respiratory: Chest non-tender. Clear bilateral breath sounds, no crackles, no wheezing. Cardiovascular/Chest: Regular rate and rhythm. No murmurs. No JVD. Peripheral Pulses: 2+ Radial (R). 2+ Radial (L). 2+ Pedal (R). 2+ Pedal (L) Abdominal Exam: Normal bowel sounds. Soft. normal abdomen, no visible veins, t enderness in lower abdomen, No hepatospenomegaly. No masses Ankle Exam: Negative ankle edema Lower extremities: Negative lower extremity edema Neuro/Mental Status: A&O x4. Coherent. Thoughts/Psych: Normal thought pattern. Appropriate mood and affect. Good judgement and insight Skin Exam: Normal inspection. Normal color. Warm. Dry Objective vital signs Vital Sign Date Time Temp Pulse Resp B/P (MAP) Pulse Ox O2 Delivery O2 Flow Rate FiO2 12/30/24 09:59 104 20 95 Room Air* 0 21 12/30/24 09:58 98.1 114/67 (83) 98.1 Total Intake and Output 12/29/24 12/29/24 12/30/24 15:00 23:00 07:00 Intake Total 500 ml 1050 ml Balance 500 ml 1050 ml medications Current Medications Medications Dose Ordered Sig/Carolyn Route Start Time Stop Time Status Last Admin Dose Admin Acetaminophen/ Hydrocodone Bitart 1 tab Q4HP PRN PO 12/29/24 22:00 12/30/24 09:51 1 TAB Morphine Sulfate 4 mg Q4HPRN PRN IV 12/29/24 22:00 Pantoprazole Sodium 40 mg DAILY PO 12/30/24 10:00 12/30/24 09:51 40 MG Sodium Chloride 1,000 ml @ 125 mls/hr Q8H IV 12/30/24 07:45 Doxycycline Hyclate 100 ml @ 50 mls/hr Q12H IV 12/30/24 10:15 12/30/24 10:53 50 MLS/HR Cefotaxime Sodium 2 gm/Dextrose 100 ml @ 100 mls/hr Q8HR IV 12/30/24 14:00 UNV Ondansetron HCl 4 mg Q4HPRN PRN IV 12/30/24 10:15 laboratory and microbiology Laboratory Tests 12/30/24 06:25 12/30/24 04:10 Test 12/30/24 04:10 Range/Units Serum Glucose 196 H 74-106 mg/dL Microbiology Date/Time Source Procedure Growth Status 12/29/24 20:30 Vaginal Vaginal Culture - Preliminary Resulted Problem List/Assessment/Plan Problem List/Assessment/Plan #acute endometritis likely due to IUD infection # likely pelvic inflammatory disease # probable pelvic abscess # sepsis due to above - CT abdomen pelvis:Intrauterine device, abnormally thickened endometrial complex up to 21 mm with extensive fluid and gas foci, surrounding pelvic inflammatory stranding. These constellation of findings concerning for infection/abscess / infected IUD /pelvic inflammatory disease. Recommend STAT gynecological assistant and ID consultation. 8 mm radiopaque density / calcification in the region of the lower endometrial/endocervical region. Right renal enlargement/ edema and perinephric stranding which could represent resultant urinary tract infection/pyelonephritis. Retroperitoneal lymphadenopathy. - IUD removed - resource protection specialist on board - IV cefoxitin, IV metronidazole, IV doxycycline, IV fluconazole - IV fluids NS at 1:25 a.m. cc/hour - acetaminophen for mild pain, [place] for moderate pain, IV morphine 2 mg for severe pain as needed. - resource protection specialist on board # acute complicated UTI with possible pyelonephritis # retroperitoneal lymphadenopathy - IV cefoxitin, IV metronidazole, IV doxycycline, IV fluconazole #hyponatremia, asymptomatic - monitor #hypokalemia - repleted with 50 mEq K PO #methamphetamine use # homeless - social sciences research scientist consult - counseled PUD prophylaxis: protonix 40mg DVT prophylaxis: SCDs Goals of care: Full code, discussed for >16 minutes on 12/30/2024 Plan discussed with patient Plan discussed with Steve Montano Plan discussed with: Patient My Orders My Orders Orders - SANDRO MCMAHON RESIDENT Procedure Category Date Status Time Ac Moderate Insulin BRYAN 12/30/24 In Process Scale (Not 12:58 Date of Service: Dec 30, 2024 Billing Provider: LIZZ DELGADO MD Common Visit Codes: [id number] INP/OBS CARE(HIGH) Secondary Visit Codes: [id number] CARE PLAN 30 MINUTES SANDRO MCMAHON RESIDENT Dec 30, 2024 14:19 LOU OG RESIDENT Dec 31, 2024 16:11 LIZZ DELGADO MD Jan 02, 2025 22:12
[2024-12-30 14:24] VITALS: RESP 16
[2024-12-30 14:42] VITALS: BP 106/64; PULSE 96; RESP 18; TEMP 98.5; O2SAT 99
[2024-12-30] MEDS: SODIUM CHLORIDE 0.9% 1,000 ML IV SCH (14:53)
[2024-12-30] MEDS: MORPHINE SULFATE INJ 2 MG/ml SYRG IV PRN (14:56)
[2024-12-30] MEDS: FLUCONAZOLE 200MG/100ML 100 ML IV SCH (16:26)
[2024-12-30 17:00] VITALS: BP 105/73; PULSE 77; RESP 18; TEMP 98.4; O2SAT 98
[2024-12-30 20:00] VITALS: PULSE 102; RESP 18; O2SAT 96
[2024-12-30 21:00] VITALS: BP 124/76; PULSE 102; RESP 18; TEMP 100.1; O2SAT 96
[2024-12-31 07:42] VITALS: RESP 18
[2024-12-31 08:50] VITALS: BP 121/77; PULSE 95; RESP 16; TEMP 98; O2SAT 97
--- NOTE | 2024-12-31 09:45 | DVHPN2 ---
Chief Complaints Patient reports: No new complaints Nursing reports: No new complaints Objective Vitals Vital Signs Date Time Temp Pulse Resp B/P (MAP) Pulse Ox O2 Delivery O2 Flow Rate FiO2 12/31/24 08:50 98.0 95 16 121/77 (92) 97 98.0 12/31/24 07:42 Room Air* 0 21 Medications Current Medications Medications (Trade) Dose Ordered Sig/Carolyn Route PRN Reason Start Time Stop Time Status Last Admin Cefotaxime Sodium 2 gm/Dextrose 100 ml @ 100 mls/hr Q8HR IV 12/30/24 14:00 UNV Cefoxitin Sodium 100 ml @ 100 mls/hr Q6HR IV 12/31/24 12:00 Doxycycline Hyclate 100 ml @ 50 mls/hr Q12H IV 12/30/24 10:15 12/30/24 21:43 Fluconazole 100 ml @ 100 mls/hr DAILY IV 12/30/24 16:00 12/30/24 16:26 Metronidazole 100 ml @ 100 mls/hr Q8HR IV 12/31/24 14:00 Ondansetron HCl (Zofran) 4 mg Q4HPRN PRN IV NAUSEA / VOMITING 12/30/24 10:15 Pantoprazole Sodium (Protonix Tablet) 40 mg DAILY PO 12/30/24 10:00 12/30/24 09:51 Lungs: Normal Cardiovascular: Normal Abdominal: Soft, Normal inspection Extremities: Normal Studies Laboratory Tests 12/30/24 06:25 12/30/24 04:10 Test 12/30/24 04:10 Range/Units Serum Glucose 196 H 74-106 mg/dL Ass/Plan Assessment s/p iud removal ,pid dehydration sepsis meth user Plan pt needs to be on proper antibiotics which she was not despite placing the orders . i discussed this with [facility] charge nurse and he will make sure orders are carried out Visit Coding OBGYN Date of Service: Dec 31, 2024 Billing Provider: THOM HOPKINS DO CAR SALES REPRESENTATIVE Common Visit Codes: [id number] INP/OBS CARE (HIGH), [id number] INP/OBS CARE(HIGH) CAR SALES REPRESENTATIVE Consultation Codes: [id number]/U INPATIENT CONSULT (HIGH) THOM HOPKINS DO Dec 31, 2024 09:45
[2024-12-31] MEDS ORDERED: DOXYCYCLINE 100MG/100ML 100 ML IV SCH (10:00)
[2024-12-31] MEDS: DOXYCYCLINE 100MG/100ML 100 ML IV SCH (11:07)
[2024-12-31 11:18] LABS: Hematocrit 36.2 % (36.0-46.0); Hemoglobin 12.2 g/dL (12.2-16.2); Mean Corpuscular Hemoglobin 30.6 pg (28.0-32.0); Mean Corpuscular Volume 90.7 fL (80.0-100.0); Nucleated Red Blood Cells % 0.0 %
[2024-12-31 11:21] LABS: Anion Gap 6 (5-15); Calcium 8.8 mg/dL (8.7-10.4); Carbon Dioxide 26 mmol/L (20-31); Chloride 105 mmol/L (98-107); Potassium 3.8 mmol/L (3.5-5.1); Sodium 137 mmol/L (136-145)
[2024-12-31 11:27] LABS: BUN/Creatinine Ratio 8.5 (10.0-20.0); Glucose 83 mg/dL (74-106)
[2024-12-31 11:29] LABS: Blood Urea Nitrogen 6 mg/dL (9-23)
[2024-12-31 13:00] VITALS: BP 123/78; PULSE 76; RESP 14; TEMP 98.3; O2SAT 92
[2024-12-31] MEDS ORDERED: ACETAMINOPHEN 325 MG TAB PO PRN (13:45)
[2024-12-31 17:00] VITALS: BP 105/67; PULSE 88; RESP 14; TEMP 98.1; O2SAT 98
--- NOTE | 2024-12-31 18:04 | DVHPNRES ---
Progress Note Date Seen: Dec 31, 2024 Resident Creating Document: SANDRO MCMAHON RESIDENT Medical Necessity Reason Pt with a Central, PICC or Fol: No Subjective Review of Systems The patient is a 54 year old female who presented to the ER with the complaint of intractable abdominal pain for a day. It was a 9/10 on intensity and localized to the lower abdomen and pelvic area. It was associated with fever and chills. The patient took ibuprofen with minimal relief of symptoms. The patient has a history of placement of IUD 8 years ago which was never removed or replaced. She denies any discharge, bleeding or change in bowel movement. CT abdomen was done in the hospital which showed endometrial infection or PID and renal edema with perinephric stranding. Labs showed raised WBCs. SOCIAL SCIENCE TEACHER was consulted and the IUD was removed. The patient still has abdoinal pain. The reports for Hep C came out positive. The TLC came down from 15.1 to 11.5. Staff Anesthetist was consulted and she was noted to be high risk for cervical cancer and asked to follow up in outpatient for PAP and mammogram. Social service consult was also done. Past medical history: B/L carpal tunnel syndrome, history of STDs Past surgical history: tonsillectomy, oophorectomy on one side, section in 2009 smoking: <1 pack per day drugs: iv methamphetamine social history: homeless Allergies: fentanyl Patient seen and examined at bedside. Patient is alert and oriented to time, place person and responding to all questions. Eyes: No Pain, No Vision change, No Conjunctivae inflammation, No Eyelid inflammation, No Other, No Redness ENT: No Ear pain, No Ear discharge, No Nose pain, No Nose discharge, No Nose congestion, No Mouth pain, No Mouth swelling, No Throat pain, No Throat swelling, No Other Cardiovascular: No Chest Pain, No Palpitations, No Orthopnea, No Paroxysmal No Dyspnea, No Edema, No Lt Headedness, No Other Respiratory: No Cough, No Dry, No Shortness of breath, No SOB with exertion, No Wheezing, No Hemoptysis, No Pleuritic Pain, No Sputum, No Other Gastrointestinal: Abdominal Pain, No Diarrhea, No Constipation, No Melena, No Hematochezia, No Other Genitourinary: No Dysuria, No Frequency, No Incontinence, No Hematuria, No Retention, No Other General Appearance: Cooperative. Well developed. Well nourished, moderate distress Head Exam: Normal inspection Neck Exam: Normal inspection. Non-tender. Normal alignment Pulmonary/Respiratory: Chest non-tender. Clear bilateral breath sounds, no crackles, no wheezing. Cardiovascular/Chest: Regular rate and rhythm. No murmurs. No JVD. Peripheral Pulses: 2+ Radial (R). 2+ Radial (L). 2+ Pedal (R). 2+ Pedal (L) Abdominal Exam: Normal bowel sounds. Soft. normal abdomen, no visible veins, tenderness in lower abdomen, No hepatospenomegaly. No masses Ankle Exam: Negative ankle edema Lower extremities: Negative lower extremity edema Neuro/Mental Status: A&O x4. Coherent. Objective vital signs Vital Sign Date Time Temp Pulse Resp B/P (MAP) Pulse Ox O2 Delivery O2 Flow Rate FiO2 12/31/24 17:00 98.1 88 14 105/67 (80) 98 98.1 12/31/24 07:42 Room Air* 0 21 Total Intake and Output 12/30/24 12/30/24 12/31/24 15:00 23:00 07:00 Intake Total 50 ml 320 ml 100 ml Balance 50 ml 320 ml 100 ml medications Current Medications Medications Dose Ordered Sig/Carolyn Route Start Time Stop Time Status Last Admin Dose Admin Acetaminophen/ Hydrocodone Bitart 1 tab Q4HP PRN PO 12/29/24 22:00 12/31/24 09:48 1 TAB Sodium Chloride 1,000 ml @ 125 mls/hr Q8H IV 12/30/24 07:45 12/31/24 07:25 125 MLS/HR Cefotaxime Sodium 2 gm/Dextrose 100 ml @ 100 mls/hr Q8HR IV 12/30/24 14:00 UNV Ondansetron HCl 4 mg Q4HPRN PRN IV 12/30/24 10:15 Fluconazole 100 ml @ 100 mls/hr DAILY IV 12/30/24 16:00 12/31/24 09:48 100 MLS/HR Cefoxitin Sodium 100 ml @ 100 mls/hr Q6HR IV 12/31/24 12:00 12/31/24 12:26 100 MLS/HR Metronidazole 100 ml @ 100 mls/hr Q8HR IV 12/31/24 14:00 12/31/24 14:07 100 MLS/HR Doxycycline Hyclate 100 ml @ 50 mls/hr Q12H IV 12/31/24 11:00 12/31/24 11:07 50 MLS/HR Morphine Sulfate 2 mg Q4HPRN PRN IV 12/31/24 13:45 Acetaminophen 325 mg Q4HP PRN PO 12/31/24 13:45 Pantoprazole Sodium 40 mg DAILY@0600 PO 01/01/25 06:00 laboratory and microbiology Laboratory Tests 12/31/24 10:15 Test 12/31/24 10:15 Range/Units Serum Glucose 83 74-106 mg/dL Microbiology Date/Time Source Procedure Growth Status 12/29/24 22:00 Cervix Anaerobic Culture - Preliminary Resulted 12/29/24 19:07 Blood Blood Culture - Preliminary NO GROWTH AFTER 24 HOURS OF INCUBATION. Resulted Labs and/or images reviewed: Labs reviewed by me, Image(s) reviewed by me Problem List/Assessment/Plan Problem List/Assessment/Plan #acute endometritis likely due to IUD infection # likely pelvic inflammatory disease # probable pelvic abscess # sepsis due to above - CT abdomen pelvis:Intrauterine device, abnormally thickened endometrial complex up to 21 mm with extensive fluid and gas foci, surrounding pelvic inflammatory stranding. These constellation of findings concerning for infection/abscess / infected IUD /pelvic inflammatory disease. Recommend STAT instructor hairspring and ID consultation. 8 mm radiopaque density / calcification in the region of the lower endometrial/endocervical region. Right renal enlargement/ edema and perinephric stranding which could represent resultant urinary tract infection/pyelonephritis. Retroperitoneal lymphadenopathy. - IUD removed - social work professor on board - IV cefoxitin, IV metronidazole, IV doxycycline, IV fluconazole - IV fluids NS at 1:25 a.m. cc/hour - acetaminophen for mild pain, [place] for moderate pain, IV morphine 2 mg for severe pain as needed. - social work professor on board # acute complicated UTI with possible pyelonephritis # retroperitoneal lymphadenopathy - IV cefoxitin, IV metronidazole, IV doxycycline, IV fluconazole #hyponatremia, asymptomatic - monitor #hypokalemia - repleted with 50 mEq K PO #methamphetamine use # homeless - addiction social worker consult - counseled PUD prophylaxis: protonix 40 mg daily DVT prophylaxis: not required Goals of care: Full code, discussed for 15 minutes on 12/31/2024 Plan discussed with patient Plan discussed with Dr Wilson Plan discussed with: Patient My Orders My Orders Orders - SANDRO MCMAHON Procedure Category Date Status Time Morphine Sulfate PHA 12/31/24 In Process Injection 13:45 Acetaminophen Tablet PHA 12/31/24 In Process (Tylenol Tablet) 13:45 Date of Service: Dec 31, 2024 Billing Provider: LIZZ WILSON MD Common Visit Codes: [id number] INP/OBS CARE(HIGH) SANDRO MCMAHON RESIDENT Dec 31, 2024 18:04 LIZZ WILSON MD Jan 02, 2025 22:13
[2024-12-31 20:00] VITALS: RESP 18
[2024-12-31] MEDS: MORPHINE SULFATE INJ 2 MG/ml SYRG IV PRN (20:41)
[2024-12-31 21:00] VITALS: BP 115/61; PULSE 70; RESP 18; TEMP 98; O2SAT 98
[2025-01-01] VITALS (8 sets, daily range): BP systolic 101–131; BP diastolic 63–80; PULSE 71–75; RESP 16–20; TEMP 96.3–98; O2SAT 96–99
[2025-01-01 04:07] LABS: Chlamydia Trachomatis, NAA Negative (Negative); Neisseria gonorrhoeae, NAA Negative (Negative)
[2025-01-01] MEDS: PANTOPRAZOLE 40 MG TAB PO SCH (06:42)
--- NOTE | 2025-01-01 08:26 | DVH ---
CLINICAL HISTORY: Pelvic abscess. COMPARISON: CT of the abdomen and pelvis dated 12/29/2024. TECHNIQUE: Transabdominal grayscale sonographic imaging of the uterus and ovaries was performed, assi sted by color Doppler technique. Duplex Doppler ultrasound of both ovaries was also performed. Patien t declined transvaginal examination. FINDINGS: The uterus measures 8.7 x 4.9 x 4.2 cm. There is homogeneous echogenicity. Endometrial thic kness measures 0.3 cm, within normal limits. There is a cluster of echogenic structures near the endo metrium measuring up to 1.3 cm in greatest dimension. Right ovary measures 2.8 x 1.6 x 2.3 cm. Arterial and venous blood flow demonstrated. Left ovary is not visualized. IMPRESSION: 1. Cluster of echogenic structures adjacent to the endometrium, possibly blood products or small locu les of gas when correlated with recent CT examination. Correlate with clinical findings. 2. Unremarkable sonographic appearance of the right ovary. Left ovary is not visualized. 3. Patient declined transvaginal examination, limiting evaluation.
--- NOTE | 2025-01-01 09:24 | DVHPN2 ---
Chief Complaints Patient reports: No new complaints, Feels better Nursing reports: No new complaints Objective Vitals Vital Signs Date Time Temp Pulse Resp B/P (MAP) Pulse Ox O2 Delivery O2 Flow Rate FiO2 01/01/25 09:09 74 20 121/71 01/01/25 05:00 98.0 96 98.0 12/31/24 20:00 Room Air* 0 21 Medications Current Medications Medications (Trade) Dose Ordered Sig/Carolyn Route PRN Reason Start Time Stop Time Status Last Admin Acetaminophen (Tylenol Tablet) 325 mg Q4HP PRN PO MILD PAIN (1-3 PAIN SCALE) 12/31/24 13:45 Cefoxitin Sodium 100 ml @ 100 mls/hr Q6HR IV 12/31/24 12:00 01/01/25 06:42 Doxycycline Hyclate 100 ml @ 50 mls/hr Q12H IV 12/31/24 11:00 12/31/24 23:04 Metronidazole 100 ml @ 100 mls/hr Q8HR IV 12/31/24 14:00 01/01/25 05:12 Morphine Sulfate 2 mg Q4HPRN PRN IV SEVERE PAIN (7-10 PAIN SCALE) 12/31/24 13:45 01/01/25 09:09 Pantoprazole Sodium (Protonix Tablet) 40 mg DAILY@0600 PO 01/01/25 06:00 01/01/25 06:42 Lungs: Normal Cardiovascular: Normal Abdominal: Soft, Normal inspection Extremities: Normal Studies Laboratory Tests 12/31/24 10:15 Test 12/31/24 10:15 Range/Units Serum Glucose 83 74-106 mg/dL Ass/Plan Assessment s/p iud removal ,pid improving dehydration sepsis resolving meth user hep c pos Plan cont with iv antibiotics Visit Coding OBGYN Date of Service: Jan 01, 2025 Billing Provider: THOM HOPKINS DO MANAGER [place] Common Visit Codes: [id number] INP/OBS CARE(HIGH) THOM HOPKINS DO Jan 01, 2025 09:24
--- NOTE | 2025-01-01 16:50 | DVHPNRES ---
Progress Note Date Seen: Jan 01, 2025 Resident Creating Document: VALENTINA DIXON RESIDENT Medical Necessity Reason Pt with a Central, PICC or Fol: No Subjective Review of Systems The patient is a 54 year old female with prior medical history of bilateral carpal tunnel syndrome, STDs, drug use, homelessness, and tobacco use who presented to the ER with the complaint of intractable abdominal pain for a day. Patient describes the pain as sharp colicky, localized in lower abdomen and pelvic area, with intensity of 9/10 , associated with fever and chills. The patient took ibuprofen with minimal relief of symptoms. The patient has a history of placement of IUD 8 years ago which was never removed or replaced. She denies any discharge, bleeding or change in bowel movement. On evaluation in the ED, patient was in mild distress and tachycardic. Initial labs show WBC count of 15.1, neutrophils 12.7, and UDS positive for amphetamines . CT abdomen showed intrauterine device, abnormally thickened endometrial complex up to 21 mm with extensive fluid and gas foci, surrounding pelvic inflammatory stranding concerning for infection/abscess/infected IUD/PID. Patient was admitted for further workup and monitoring. PERCUSSION INSTRUCTOR was consulted and the IUD was removed. Patient seen at bedside. Patient states that she feels ill, complains of abdominal pain. States that during the night she felt a popping sensation in lower abdomen followed by bloody and purulent vaginal discharge. Additionally, refers headache, questionable bloody bowel movement, and dizziness. Currently denies fever, nausea, vomiting, diarrhea, chest pain, and palpitations. Vitals have been stable. Follow-up labs show improving leukocytosis. Cultures are currently negative. Patient states that she wishes to be off morphine, stating that it causes itching in her scalp and gives her headaches. She has been started on tramadol. There has been difficulty maintaining an IV line, today new line was placed with ultrasound. Laboratory show the patient is hepatitis-C positive. She has been informed of least resolved, states that she was unaware. Patient will follow up outpatient for hep C RNA testing. We will continue current IV antibiotic management. We will continue to follow. Objective vital signs Vital Sign Date Time Temp Pulse Resp B/P (MAP) Pulse Ox O2 Delivery O2 Flow Rate FiO2 01/01/25 13:00 96.5 72 20 123/79 (94) 97 96.5 01/01/25 08:00 Room Air* 0 21 Total Intake and Output 12/31/24 12/31/24 01/01/25 15:00 23:00 07:00 Intake Total 300 ml 660 ml 800 ml Output Total 600 ml Balance 300 ml 660 ml 200 ml medications Current Medications Medications Dose Ordered Sig/Carolyn Route Start Time Stop Time Status Last Admin Dose Admin Acetaminophen/ Hydrocodone Bitart 1 tab Q4HP PRN PO 12/29/24 22:00 Hold 12/31/24 23:13 1 TAB Sodium Chloride 1,000 ml @ 125 mls/hr Q8H IV 12/30/24 07:45 01/01/25 07:45 125 MLS/HR Cefotaxime Sodium 2 gm/Dextrose 100 ml @ 100 mls/hr Q8HR IV 12/30/24 14:00 UNV Ondansetron HCl 4 mg Q4HPRN PRN IV 12/30/24 10:15 Fluconazole 100 ml @ 100 mls/hr DAILY IV 12/30/24 16:00 01/01/25 09:09 100 MLS/HR Cefoxitin Sodium 100 ml @ 100 mls/hr Q6HR IV 12/31/24 12:00 01/01/25 13:19 100 MLS/HR Metronidazole 100 ml @ 100 mls/hr Q8HR IV 12/31/24 14:00 01/01/25 05:12 100 MLS/HR Doxycycline Hyclate 100 ml @ 50 mls/hr Q12H IV 12/31/24 11:00 01/01/25 11:14 50 MLS/HR Acetaminophen 325 mg Q4HP PRN PO 12/31/24 13:45 Pantoprazole Sodium 40 mg DAILY@0600 PO 01/01/25 06:00 01/01/25 06:42 40 MG Tramadol HCl 50 mg Q4HP PRN PO 01/01/25 12:15 01/01/25 13:19 50 MG Examination General: The patient alert and oriented in person place and time. Patient following commands HEENT: Normocephalic , atraumatic, EOM intact, normal reactive pupils, pink conjunctiva, pink moist mucous membrane Respiratory/pulmonary: Bilateral chest expansion, Clear lungs bilaterally, vesicular murmurs present in almost all lung griffin, no associated crackles or wheezes. Cardiovascular: Normal RRR, normal S1-S2 Abdomen: Abdomen nondistended, normal bowel sounds, pain on percussion in lower abdomen, soft, pain to palpation in any of lower abdominal quadrants and suprapubic region, no palpable masses. Extremities: No deformities, there is no peripheral edema present at the lower extremities. Peripheral pulses 3+ radial right, 3+ radials soft. 3+ dorsalis pedis right. 3+ dorsalis pedis left Skin: No rashes or pruritus Neurological: Intact cranial nerves with no focal neurologic deficits laboratory and microbiology Laboratory Tests 12/31/24 10:15 Test 12/31/24 10:15 Range/Units Serum Glucose 83 74-106 mg/dL Microbiology Date/Time Source Procedure Growth Status 12/29/24 22:00 Cervix Anaerobic Culture - Preliminary Resulted 12/29/24 19:07 Blood Blood Culture - Preliminary NO GROWTH AFTER 48 HOURS OF INCUBATION. Resulted Problem List/Assessment/Plan Problem List/Assessment/Plan Assessment and plan: Sepsis secondary to acute endometritis likely due to IUD infection -IUD removed -metronidazole 500 mg IV Q 8 hours -cefoxitin IV q.6 hours -doxycycline IV q.12 hours -fluconazole IV daily -IV fluids 1000 ml q.8 hours -blood cultures: Preliminary: No growth at 48 hours of incubation -vaginal cultures: Preliminary: Moderate growth of normal vaginal nestor Transaminitis due to sepsis Pelvic abscess -Abdominal CT: Intrauterine device, abnormally thickened endometrial complex up to 21 mm with extensive fluid and gas foci, surrounding pelvic inflammatory stranding. These constellation of findings concerning for infection/abscess / infected IUD /pelvic inflammatory disease. Intractable abdominal pain, secondary to above -[place] 5 mg Q 4 PO prn, held -morphine 2 mg IV q.4 PRN, discontinued -tramadol 50 mg Q 4 p.o. p.r.n. -acetaminophen 325 mg Q 4 p.o. p.r.n. Hyponatremia, resolved -IV fluids Hypokalemia , resolved -potassium 50 mEq p.o. once Methamphetamine use Case discussed with Goals of care discussed with the patient for over 35 minutes. Full code Plan discussed with: Patient My Orders My Orders Orders - VALENTINA DIXON Procedure Category Date Status Time Tramadol Hcl (Ultram) PHA 01/01/25 In Process 12:15 Complete Blood Count LAB 01/02/25 Verified 04:00 Basic Metabolic Panel LAB 01/02/25 Verified 04:00 Dietary Evaluation Review Comments: 1) Initiate Ensure High Protein 2) Encourage optimal PO intake 3) Follow-up with gastroenterology/hepatology and OBGYN 4) Follow-up with clinical social work aide r/t methamphetamine abuse and housing assistance 5) Continue to monitor I&O, labs, and skin integrity Expected Outcomes/Goals: 1) appetite and labs to improve 2) f/u in 3-5 days Date of Service: Jan 01, 2025 Billing Provider: OSMAR DOMINGUEZ MD Common Visit Codes: [id number] INP/OBS CARE(HIGH) DIXON,VALENTINA RESIDENT Jan 01, 2025 16:50 OSMAR DOMINGUEZ MD Jan 01, 2025 19:53
[2025-01-02] VITALS (8 sets, daily range): BP systolic 103–143; BP diastolic 56–91; PULSE 57–69; RESP 16–20; TEMP 96–98.2; O2SAT 96–99
[2025-01-02] MEDS: ACETAMINOPHEN 325 MG TAB PO SCH
[2025-01-02] MEDS: MORPHINE SULFATE INJ 2 MG/ml SYRG IV ONE (00:34)
[2025-01-02 07:18] LABS: Hematocrit 37.6 % (36.0-46.0); Hemoglobin 13.1 g/dL (12.2-16.2); Mean Corpuscular Hemoglobin 31.5 pg (28.0-32.0); Mean Corpuscular Volume 90.3 fL (80.0-100.0); Nucleated Red Blood Cells % 0.0 %
[2025-01-02 07:31] LABS: Albumin 3.7 g/dL (3.2-4.8); Alkaline Phosphatase 98 U/L (46-116); Anion Gap 9 (5-15); BUN/Creatinine Ratio 13.0 (10.0-20.0); Blood Urea Nitrogen 9 mg/dL (9-23); Calcium 8.9 mg/dL (8.7-10.4); Carbon Dioxide 28 mmol/L (20-31); Chloride 103 mmol/L (98-107); Glucose 105 mg/dL (74-106); Potassium 3.7 mmol/L (3.5-5.1); Sodium 140 mmol/L (136-145); Total Protein 6.5 g/dL (5.7-8.2)
[2025-01-02 07:32] LABS: Alanine Aminotransferase 44 U/L (7-40); Bilirubin, Total 0.2 mg/dL (0.2-1.0)
--- NOTE | 2025-01-02 09:14 | DVHPN2 ---
Chief Complaints Patient reports: No new complaints, Feels better Nursing reports: No new complaints Objective Vitals Vital Signs Date Time Temp Pulse Resp B/P (MAP) Pulse Ox O2 Delivery O2 Flow Rate FiO2 01/02/25 04:56 97.8 57 18 103/56 (72) 98 97.8 01/01/25 20:00 Room Air* 0 21 Medications Current Medications Medications (Trade) Dose Ordered Sig/Carolyn Route PRN Reason Start Time Stop Time Status Last Admin Acetaminophen (Tylenol Tablet) 650 mg Q6HP PO 01/02/25 00:00 01/02/25 06:55 Cefoxitin Sodium 100 ml @ 100 mls/hr Q6H IV 01/02/25 08:00 01/02/25 08:19 Doxycycline Hyclate 100 ml @ 50 mls/hr Q12H IV 01/02/25 15:00 Metronidazole 100 ml @ 100 mls/hr Q8HR@0100,0900,1700 IV 01/02/25 09:00 01/02/25 09:05 Tramadol HCl (Ultram) 50 mg Q4HP PRN PO MODERATE PAIN (4-6 PAIN SCALE) 01/01/25 12:15 01/02/25 08:19 Lungs: Normal Cardiovascular: Normal Abdominal: Soft, Normal inspection Extremities: Normal Studies Laboratory Tests 01/02/25 05:51 Test 01/02/25 05:51 Range/Units Serum Glucose 105 74-106 mg/dL Ass/Plan Assessment s/p iud removal ,pid improved dehydration resolved sepsis resolving meth user hep c pos Plan pt is stable and has responded well to abx ,recommend doxy 100mg bid x10d upon dc will sign off thank you Visit Coding OBGYN Date of Service: Jan 02, 2025 Billing Provider: THOM HOPKINS DO MARKETING CLERK Common Visit Codes: [id number] INP/OBS CARE(HIGH) MARKETING CLERK Consultation Codes: [id number] INPATIENT CONSULT (LOW) THOM HOPKINS DO Jan 02, 2025 09:14
[2025-01-02] MEDS: DOXYCYCLINE 100MG/100ML 100 ML IV SCH (15:00)
--- NOTE | 2025-01-02 15:03 | DVHPNRES ---
Progress Note Date Seen: Jan 02, 2025 Resident Creating Document: SANDRO MCMAHON RESIDENT Medical Necessity Reason Pt with a Central, PICC or Fol: No Subjective Review of Systems The patient is a 54 year old female with prior medical history of bilateral carpal tunnel syndrome, STDs, drug use, homelessness, and tobacco use who presented to the ER with the complaint of intractable abdominal pain for a day. Patient describes the pain as sharp colicky, localized in lower abdomen and pelvic area, with intensity of 9/10 , associated with fever and chills. The patient took ibuprofen with minimal relief of symptoms. The patient has a history of placement of IUD 8 years ago which was never removed or replaced. She denies any discharge, bleeding or change in bowel movement. On evaluation in the ED, patient was in mild distress and tachycardic. Initial labs show WBC count of 15.1, neutrophils 12.7, and UDS positive for amphetamines . CT abdomen showed intrauterine device, abnormally thickened endometrial complex up to 21 mm with extensive fluid and gas foci, surrounding pelvic inflammatory stranding concerning for infection/abscess/infected IUD/PID. Patient was admitted for further workup and monitoring. BULLET ASSEMBLY PRESS SETTER OPERATOR was consulted and the IUD was removed. Patient seen at bedside. Patient states that she feels ill, complains of abdominal pain. States that during the night she felt a popping sensation in lower abdomen followed by bloody and purulent vaginal discharge. Additionally, refers headache, questionable bloody bowel movement, and dizziness. Currently denies fever, nausea, vomiting, diarrhea, chest pain, and palpitations. Vitals have been stable. Follow-up labs show improving leukocytosis. Cultures are currently negative. Patient states that she wishes to be off morphine, stating that it causes itching in her scalp and gives her headaches. She has been started on tramadol. There has been difficulty maintaining an IV line, today new line was placed with ultrasound. Laboratory show the patient is hepatitis-C positive. Patient will follow up outpatient for hep C RNA testing. We will continue current IV antibiotic management. We will continue to follow. Pateint still feels sick and has intense lower abdominal pain for which tramadol was increased to 100mg daily as needed. Pelvic ultrasound yesterday showed cluster of echogenic structures adjacent to the endometrium, possibly blood products or small locules of gas. Repeat pelvis ultrasound to be done today as transvaginal ultrasound was pending. the TLC is showing a downward trend. Eyes: No Pain, No Vision change, No Conjunctivae inflammation, No Eyelid inflammation, No Other, No Redness ENT: No Ear pain, No Ear discharge, No Nose pain, No Nose discharge, No Nose congestion, No Mouth pain, No Mouth swelling, No Throat pain, No Throat swelling, No Other Cardiovascular: No Chest Pain, No Palpitations, No Orthopnea, No Paroxysmal No Dyspnea, No Edema, No Lt Headedness, No Other Respiratory: No Cough, No Dry, No Shortness of breath, No SOB with exertion, No Wheezing, No Hemoptysis, No Pleuritic Pain, No Sputum, No Other Gastrointestinal: Abdominal Pain, No Diarrhea, No Constipation, No Melena, No Hematochezia, No Other Genitourinary: No Dysuria, No Frequency, No Incontinence, No Hematuria, No Retention, No Other General Appearance: Cooperative. Well developed. Well nourished, moderate distress Head Exam: Normal inspection Neck Exam: Normal inspection. Non-tender. Normal alignment Pulmonary/Respiratory: Chest non-tender. Clear bilateral breath sounds, no crackles, no wheezing. Cardiovascular/Chest: Regular rate and rhythm. No murmurs. No JVD. Peripheral Pulses: 2+ Radial (R). 2+ Radial (L). 2+ Pedal (R). 2+ Pedal (L) Abdominal Exam: Normal bowel sounds. Soft. normal abdomen, no visible veins, tenderness in lower abdomen, No hepatospenomegaly. No masses Ankle Exam: Negative ankle edema Lower extremities: Negative lower extremity edema Neuro/Mental Status: A&O x4. Coherent. Objective vital signs Vital Sign Date Time Temp Pulse Resp B/P (MAP) Pulse Ox O2 Delivery O2 Flow Rate FiO2 01/02/25 12:41 96.0 58 20 131/61 (84) 99 96.0 01/02/25 08:00 Room Air* 0 21 Total Intake and Output 01/01/25 01/01/25 01/02/25 15:00 23:00 07:00 Intake Total 200 ml 808 ml 1100 ml Balance 200 ml 808 ml 1100 ml medications Current Medications Medications Dose Ordered Sig/Carolyn Route Start Time Stop Time Status Last Admin Dose Admin Acetaminophen/ Hydrocodone Bitart 1 tab Q4HP PRN PO 12/29/24 22:00 Hold 12/31/24 23:13 1 TAB Sodium Chloride 1,000 ml @ 125 mls/hr Q8H IV 12/30/24 07:45 01/02/25 01:58 125 MLS/HR Cefotaxime Sodium 2 gm/Dextrose 100 ml @ 100 mls/hr Q8HR IV 12/30/24 14:00 UNV Ondansetron HCl 4 mg Q4HPRN PRN IV 12/30/24 10:15 Fluconazole 100 ml @ 100 mls/hr DAILY IV 12/30/24 16:00 01/02/25 13:14 100 MLS/HR Acetaminophen 325 mg Q4HP PRN PO 12/31/24 13:45 Pantoprazole Sodium 40 mg DAILY@0600 PO 01/01/25 06:00 01/02/25 06:54 40 MG Tramadol HCl 50 mg Q4HP PRN PO 01/01/25 12:15 Hold 01/02/25 08:19 50 MG Acetaminophen 650 mg Q6HP PO 01/02/25 00:00 01/02/25 11:55 650 MG Metronidazole 100 ml @ 100 mls/hr Q8HR@0100,0900,1700 IV 01/02/25 09:00 01/02/25 09:05 100 MLS/HR Cefoxitin Sodium 100 ml @ 100 mls/hr Q6H IV 01/02/25 08:00 01/02/25 14:30 100 MLS/HR Doxycycline Hyclate 100 ml @ 50 mls/hr Q12H IV 01/02/25 15:00 Tramadol HCl 100 mg BID PRN PO 01/02/25 12:30 laboratory and microbiology Laboratory Tests 01/02/25 05:51 Test 01/02/25 05:51 Range/Units Serum Glucose 105 74-106 mg/dL Microbiology Date/Time Source Procedure Growth Status 12/29/24 22:00 Cervix Anaerobic Culture - Preliminary Resulted 12/29/24 19:07 Blood Blood Culture - Preliminary NO GROWTH AFTER 72 HOURS OF INCUBATION. Resulted Labs and/or images reviewed: Labs reviewed by me, Image(s) reviewed by me Problem List/Assessment/Plan Problem List/Assessment/Plan #acute endometritis likely due to IUD infection # likely pelvic inflammatory disease # probable pelvic abscess # sepsis due to above - CT abdomen pelvis:Intrauterine device, abnormally thickened endometrial complex up to 21 mm with extensive fluid and gas foci, surrounding pelvic inflammatory stranding. These constellation of findings concerning for infection/abscess / infected IUD /pelvic inflammatory disease. Recommend STAT grain i farmworker and ID consultation. 8 mm radiopaque density / calcification in the region of the lower endometrial/endocervical region. Right renal enlargement/ edema and perinephric stranding which could represent resultant urinary tract infection/pyelonephritis. Retroperitoneal lymphadenopathy. - IUD removed - roving carrier on board - IV cefoxitin, IV metronidazole, IV doxycycline, IV fluconazole - IV fluids NS 1000ml @ 125 ml/hour - acetaminophen for mild pain, [place] for moderate pain, IV morphine 2 mg for severe pain as needed. - roving carrier on board -tramadol 100 mg twice daily as needed # acute complicated UTI with possible pyelonephritis # retroperitoneal lymphadenopathy - IV cefoxitin, IV metronidazole, IV doxycycline, IV fluconazole #hyponatremia, asymptomatic - monitor #hypokalemia - repleted with 50 mEq K PO #methamphetamine use # homeless - social worker school consult - counseled PUD prophylaxis: protonix 40 mg daily DVT prophylaxis: not required Goals of care: Full code, discussed for 15 minutes on 01/02/2025 Plan discussed with patient Plan discussed with Dr Dominguez Plan discussed with: Patient My Orders My Orders Orders - SANDRO MCMAHON RESIDENT Procedure Category Date Status Time Tramadol Hcl (Ultram) PHA 01/02/25 In Process 12:30 Dietary Evaluation Review Comments: 1) Initiate Ensure High Protein 2) Encourage optimal PO intake 3) Follow-up with gastroenterology/hepatology and OBGYN 4) Follow-up with criminal justice social worker r/t methamphetamine abuse and housing assistance 5) Continue to monitor I&O, labs, and skin integrity Expected Outcomes/Goals: 1) appetite and labs to improve 2) f/u in 3-5 days Date of Service: Jan 02, 2025 Billing Provider: OSMAR DOMINGUEZ MD Common Visit Codes: [id number] INP/OBS CARE(HIGH) SANDRO MCMAHON RESIDENT Jan 02, 2025 15:03 OSMAR DOMINGUEZ MD Jan 02, 2025 18:02
--- NOTE | 2025-01-02 16:54 | DVH ---
INDICATION: Endometrial abscess evaluation TECHNIQUE: Multiple real-time grayscale transvaginal sonographic images along with color and duplex Doppler of the uterus and ovaries were obtained. COMPARISON: US PELVIC on DOS: 01/01/25 FINDINGS: The uterus measures 8.7 x 5.4 x 4.9 cm. The endometrial stripe measures 5.6 mm. Multiple ec hogenic shadowing structures in the uterus suggesting calcifications. Cystic structures in the cervix consistent with nabothian cysts. The right ovary not visualized The left ovary surgically removed. Subsequent color and duplex Doppler interrogation of the ovaries demonstrated symmetric vascular flow to both ovaries, though this does not exclude the possibility of torsion due to the dual blood suppl y. IMPRESSION: 1. Endometrium measures 5.6 mm. 2. Multiple nabothian cysts
[2025-01-03] VITALS (7 sets, daily range): BP systolic 121–149; BP diastolic 70–99; PULSE 53–82; RESP 17–20; TEMP 97.5–98.4; O2SAT 95–100
--- NOTE | 2025-01-03 16:59 | DVHPNRES ---
Progress Note Date Seen: Jan 03, 2025 Resident Creating Document: SANDRO MCMAHON RESIDENT Medical Necessity Reason Pt with a Central, PICC or Fol: No Subjective Review of Systems The patient is a 54 year old female with prior medical history of bilateral carpal tunnel syndrome, STDs, drug use, homelessness, and tobacco use who presented to the ER with the complaint of intractable abdominal pain for a day. Patient describes the pain as sharp colicky, localized in lower abdomen and pelvic area, with intensity of 9/10 , associated with fever and chills. The patient took ibuprofen with minimal relief of symptoms. The patient has a history of placement of IUD 8 years ago which was never removed or replaced. She denies any discharge, bleeding or change in bowel movement. On evaluation in the ED, patient was in mild distress and tachycardic. Initial labs show WBC count of 15.1, neutrophils 12.7, and UDS positive for amphetamines . CT abdomen showed intrauterine device, abnormally thickened endometrial complex up to 21 mm with extensive fluid and gas foci, surrounding pelvic inflammatory stranding concerning for infection/abscess/infected IUD/PID. Patient was admitted for further workup and monitoring. FUNERAL PRE ARRANGEMENT SPECIALIST was consulted and the IUD was removed. Patient seen at bedside. Patient states that she feels ill, complains of abdominal pain. States that during the night she felt a popping sensation in lower abdomen followed by bloody and purulent vaginal discharge. Additionally, refers headache, questionable bloody bowel movement, and dizziness. Currently denies fever, nausea, vomiting, diarrhea, chest pain, and palpitations. Vitals have been stable. Follow-up labs show improving leukocytosis. Cultures are currently negative. Patient states that she wishes to be off morphine, stating that it causes itching in her scalp and gives her headaches. She has been started on tramadol. There has been difficulty maintaining an IV line, today new line was placed with ultrasound. Laboratory show the patient is hepatitis-C positive. Patient will follow up outpatient for hep C RNA testing. We will continue current IV antibiotic management. We will continue to follow. Patient still feels sick and has intense lower abdominal pain for which tramadol was increased to 100mg daily as needed. Pelvic ultrasound yesterday showed cluster of echogenic structures adjacent to the endometrium, possibly blood products or small locules of gas. Repeat pelvis ultrasound to be done today as transvaginal ultrasound was pending. the TLC is showing a downward trend. Repeat pelvic ultrasound (transvaginal) showed endometrial thickness of 5.6mm and multiple nabothian cysts. She still complains of abdominal pain for which she was prescribed ketorolac 15mg q8 prn. food and nutrition services assistant consult was called to facilitate living situation. Eyes: No Pain, No Vision change, No Conjunctivae inflammation, No Eyelid inflammation, No Other, No Redness ENT: No Ear pain, No Ear discharge, No Nose pain, No Nose discharge, No Nose congestion, No Mouth pain, No Mouth swelling, No Throat pain, No Throat swelling, No Other Cardiovascular: No Chest Pain, No Palpitations, No Orthopnea, No Paroxysmal No Dyspnea, No Edema, No Lt Headedness, No Other Respiratory: No Cough, No Dry, No Shortness of breath, No SOB with exertion, No Wheezing, No Hemoptysis, No Pleuritic Pain, No Sputum, No Other Gastrointestinal: Abdominal Pain, No Diarrhea, No Constipation, No Melena, No Hematochezia, No Other Genitourinary: No Dysuria, No Frequency, No Incontinence, No Hematuria, No Retention, No Other General Appearance: Cooperative. Well developed. Well nourished, moderate distress Head Exam: Normal inspection Neck Exam: Normal inspection. Non-tender. Normal alignment Pulmonary/Respiratory: Chest non-tender. Clear bilateral breath sounds, no crackles, no wheezing. Cardiovascular/Chest: Regular rate and rhythm. No murmurs. No JVD. Peripheral Pulses: 2+ Radial (R). 2+ Radial (L). 2+ Pedal (R). 2+ Pedal (L) Abdominal Exam: Normal bowel sounds. Soft. normal abdomen, no visible veins, tenderness in lower abdomen, No hepatospenomegaly. No masses Ankle Exam: Negative ankle edema Lower extremities: Negative lower extremity edema Neuro/Mental Status: A&O x4. Coherent. Objective vital signs Vital Sign Date Time Temp Pulse Resp B/P (MAP) Pulse Ox O2 Delivery O2 Flow Rate FiO2 01/03/25 12:58 98.4 82 20 146/89 (108) 100 98.4 01/03/25 08:00 Room Air* 0 21 Total Intake and Output 01/02/25 01/02/25 01/03/25 15:00 23:00 07:00 Intake Total 1336 ml 1780 ml Balance 1336 ml 1780 ml medications Current Medications Medications Dose Ordered Sig/Carolyn Route Start Time Stop Time Status Last Admin Dose Admin Acetaminophen/ Hydrocodone Bitart 1 tab Q4HP PRN PO 12/29/24 22:00 Hold 12/31/24 23:13 1 TAB Sodium Chloride 1,000 ml @ 125 mls/hr Q8H IV 12/30/24 07:45 01/02/25 23:20 125 MLS/HR Cefotaxime Sodium 2 gm/Dextrose 100 ml @ 100 mls/hr Q8HR IV 12/30/24 14:00 UNV Ondansetron HCl 4 mg Q4HPRN PRN IV 12/30/24 10:15 Fluconazole 100 ml @ 100 mls/hr DAILY IV 12/30/24 16:00 01/03/25 11:10 100 MLS/HR Acetaminophen 325 mg Q4HP PRN PO 12/31/24 13:45 Pantoprazole Sodium 40 mg DAILY@0600 PO 01/01/25 06:00 01/03/25 05:44 40 MG Tramadol HCl 50 mg Q4HP PRN PO 01/01/25 12:15 Hold 01/02/25 08:19 50 MG Acetaminophen 650 mg Q6HP PO 01/02/25 00:00 01/03/25 12:27 650 MG Metronidazole 100 ml @ 100 mls/hr Q8HR@0100,0900,1700 IV 01/02/25 09:00 01/03/25 09:34 100 MLS/HR Cefoxitin Sodium 100 ml @ 100 mls/hr Q6H IV 01/02/25 08:00 01/03/25 08:23 100 MLS/HR Doxycycline Hyclate 100 ml @ 50 mls/hr Q12H IV 01/02/25 15:00 01/03/25 03:05 50 MLS/HR Tramadol HCl 100 mg BID PRN PO 01/02/25 12:30 01/03/25 15:28 100 MG Ketorolac Tromethamine 15 mg Q8HPRN PRN IV 01/03/25 15:45 01/05/25 15:30 UNV laboratory and microbiology Laboratory Tests 01/02/25 05:51 Test 01/02/25 05:51 Range/Units Serum Glucose 105 74-106 mg/dL Microbiology Date/Time Source Procedure Growth Status 12/29/24 22:00 Cervix Anaerobic Culture - Preliminary Resulted 12/29/24 19:07 Blood Blood Culture - Preliminary NO GROWTH AFTER 72 HOURS OF INCUBATION. Resulted Problem List/Assessment/Plan Problem List/Assessment/Plan #acute endometritis likely due to IUD infection # likely pelvic inflammatory disease # probable pelvic abscess # sepsis due to above - CT abdomen pelvis:Intrauterine device, abnormally thickened endometrial complex up to 21 mm with extensive fluid and gas foci, surrounding pelvic inflammatory stranding. These constellation of findings concerning for infection/abscess / infected IUD /pelvic inflammatory disease. Recommend STAT auto damage insurance appraiser and ID consultation. 8 mm radiopaque density / calcification in the region of the lower endometrial/endocervical region. Right renal enlargement/ edema and perinephric stranding which could represent resultant urinary tract infection/pyelonephritis. Retroperitoneal lymphadenopathy. - IUD removed - satellite project site monitor on board - IV cefoxitin, IV metronidazole, IV doxycycline, IV fluconazole - IV fluids NS 1000ml @ 125 ml/hour - acetaminophen for mild pain, [place] for moderate pain, IV morphine 2 mg for severe pain as needed. - satellite project site monitor on board -tramadol 100 mg twice daily as needed -ketorlac 15mg q8 iv as needed # acute complicated UTI with possible pyelonephritis # retroperitoneal lymphadenopathy - IV cefoxitin, IV metronidazole, IV doxycycline, IV fluconazole #hyponatremia, asymptomatic - monitor #hypokalemia - repleted with 50 mEq K PO #methamphetamine use # homeless - social security specialist consult - counseled PUD prophylaxis: protonix 40 mg daily DVT prophylaxis: not required Goals of care: Full code, discussed for 15 minutes on 01/03/2025 Plan discussed with patient Plan discussed with Dr Wilson Plan discussed with: Patient My Orders My Orders Orders - SANDRO MCMAHON RESIDENT Procedure Category Date Status Time * Engravings Polisher CONS 01/03/25 Transmitted Consult Ketorolac Injection PHA 01/03/25 Logged (Toradol Injection) 15:45 Dietary Evaluation Review Comments: 1) Initiate Ensure High Protein 2) Encourage optimal PO intake 3) Follow-up with gastroenterology/hepatology and OBGYN 4) Follow-up with clinical social worker r/t methamphetamine abuse and housing assistance 5) Continue to monitor I&O, labs, and skin integrity Expected Outcomes/Goals: 1) appetite and labs to improve 2) f/u in 3-5 days SIBIA,HARNOOR DELGADO RESIDENT Jan 03, 2025 16:59
[2025-01-03] MEDS: KETOROLAC TROMETH 30 MG/ML 1ML VIAL IV PRN (18:20)
[2025-01-04 01:21] VITALS: BP 135/74; PULSE 75; RESP 16; TEMP 98.1; O2SAT 96
[2025-01-04 05:11] VITALS: BP 139/78; PULSE 41; RESP 16; TEMP 98.7; O2SAT 95
[2025-01-04 06:33] LABS: Hematocrit 39.0 % (36.0-46.0); Hemoglobin 13.3 g/dL (12.2-16.2); Mean Corpuscular Hemoglobin 31.1 pg (28.0-32.0); Mean Corpuscular Volume 90.9 fL (80.0-100.0); Nucleated Red Blood Cells % 0.1 %
[2025-01-04 06:36] LABS: Chloride 103 mmol/L (98-107); Potassium 3.8 mmol/L (3.5-5.1); Sodium 139 mmol/L (136-145)
[2025-01-04 06:37] LABS: Anion Gap 8 (5-15); Calcium 9.0 mg/dL (8.7-10.4); Carbon Dioxide 28 mmol/L (20-31)
[2025-01-04 06:42] LABS: BUN/Creatinine Ratio 16.5 (10.0-20.0); Blood Urea Nitrogen 13 mg/dL (9-23); Glucose 76 mg/dL (74-106)
[2025-01-04 08:00] VITALS: PULSE 78; RESP 18; O2SAT 95
[2025-01-04 09:00] VITALS: BP 122/93; PULSE 81; RESP 16; TEMP 97; O2SAT 99
[2025-01-04] MEDS ORDERED: DOXY-346 PO (11:00)
[2025-01-04] MEDS ORDERED: MET500T PO (11:00)
--- NOTE | 2025-01-04 15:35 | DVHDSRES ---
Discharge Summary Date of Admission Resident Creating Document: SANDRO MCMAHON RESIDENT Dec 29, 2024 at 21:49 Date of Discharge: Jan 04, 2025 Labs/Diagnostic Data: Laboratory Results Test 01/04/25 05:14 01/02/25 05:51 12/30/24 06:25 12/29/24 22:00 White Blood Count 6.3 10^3/uL (4.4-10.8) Red Blood Count 4.29 10^6/uL (4.0-5.20) Hemoglobin 13.3 g/dL (12.2-16.2) Hematocrit 39.0 % (36.0-46.0) Mean Corpuscular Volume 90.9 fL (80.0-100.0) Mean Corpuscular Hemoglobin 31.1 pg (28.0-32.0) Mean Corpuscular Hemoglobin Concent 34.2 g/dL (32.0-36.0) Red Cell Distribution Width 12.7 % (11.8-14.3) Platelet Count 335 10^3/uL (140-450) Mean Platelet Volume 6.6 fL (6.9-10.8) Neutrophils (%) (Auto) 60.6 % (37.0-80.0) Lymphocytes (%) (Auto) 26.7 % (10.0-50.0) Monocytes (%) (Auto) 10.0 % (0.0-12.0) Eosinophils (%) (Auto) 1.6 % (0.0-7.0) Basophils (%) (Auto) 1.1 % (0.0-2.0) Neutrophils # (Auto) 3.8 10 ^3/uL (1.6-8.6) Lymphocytes # (Auto) 1.7 10 ^3/uL (0.4-5.4) Monocytes # (Auto) 0.6 10 ^3/uL (0-1.3) Eosinophils # (Auto) 0.1 10 ^3/uL (0-0.8) Basophils # (Auto) 0.1 10 ^3/uL (0-0.2) Nucleated Red Blood Cells 0.1 % Sodium Level 139 mmol/L (136-145) Potassium Level 3.8 mmol/L (3.5-5.1) Chloride Level 103 mmol/L (98-107) Carbon Dioxide Level 28 mmol/L (20-31) Anion Gap 8 (5-15) Blood Urea Nitrogen 13 mg/dL (9-23) Creatinine 0.79 mg/dL (0.550-1.02) Glomerular Filtration Rate Calc 89 mL/min (>90) BUN/Creatinine Ratio 16.5 (10.0-20.0) Serum Glucose 76 mg/dL (74-106) Calcium Level 9.0 mg/dL (8.7-10.4) Total Bilirubin 0.2 mg/dL (0.2-1.0) Aspartate Amino Transferase (AST) 43 U/L (13-40) Alanine Aminotransferase (ALT) 44 U/L (7-40) Alkaline Phosphatase 98 U/L (46-116) Total Protein 6.5 g/dL (5.7-8.2) Albumin 3.7 g/dL (3.2-4.8) Hemoglobin A1c 5.3 % A1C (<5.7) Urine Color Light-yellow (Yellow) Urine Clarity Clear (Clear) Urine pH 6.0 (5.0-9.0) Urine Specific [place] 1.006 (1.001-1.035) Urine Protein Negative (Negative) Urine Ketones Negative (Negative) Urine Blood Negative /uL (Negative) Urine Nitrite Negative (Negative) Urine Bilirubin Negative (Negative) Urine Urobilinogen Normal mg/dL (Negative) Urine Leukocyte Esterase Negative /uL (Negative) Urine RBC <1 /hpf (0 - 4) Urine Microscopic WBC 1 /HPF (0-5) Urine Squamous Epithelial Cells Few /hpf (<5) Urine Bacteria None seen /hpf (None Seen) Urine Glucose Normal mg/dL (Normal) Urine Test Negative (Negative) Urine Opiates Screen Neg (NEGATIVE) Urine Fentanyl Screen Neg (NEGATIVE) Urine Barbiturates Screen Neg (NEGATIVE) Urine Phencyclidine Screen Neg (NEGATIVE) Urine Amphetamines Screen Pos (NEGATIVE) Urine Benzodiazepines Screen Neg (NEGATIVE) Urine Cocaine Screen Neg (NEGATIVE) Urine Cannabinoids Screen Neg (NEGATIVE) Chlamydia trachomatis (LUCI) Negative (Negative) Neisseria gonorrhoeae (LUCI) Negative (Negative) Test 12/29/24 20:16 12/29/24 19:07 12/29/24 16:22 Total Estradiol 7.8 pg/mL (.) Follicle Stimulating Hormone 82.44 IU/L (SEE BELOW) Hepatitis B Surface Antigen Negative (Negative) Hepatitis C Antibody Positive (Negative) Lactic Acid Level 0.7 mmol/L (0.4-2.0) Lipase 44 U/L (12-53) Treponema pallidum Antibody Non-reactive (Negative) HIV (1&2) Antibody Negative (Negative) Other Laboratory Tests 01/04/25 05:14 Brief Hx & Hospital Course: The patient is a 54 year old female with prior medical history of bilateral carpal tunnel syndrome, STDs, drug use, homelessness, and tobacco use who presented to the ER with the complaint of intractable abdominal pain for a day. Patient described the pain as sharp colicky, localized in lower abdomen and pelvic area, with intensity of 9/10 , associated with fever and chills. The patient took ibuprofen with minimal relief of symptoms. The patient had a history of placement of IUD 8 years ago which was never removed or replaced. She denied any discharge, bleeding or change in bowel movement. On evaluation in the ED, patient was in mild distress and tachycardic. Initial labs show WBC count of 15.1, neutrophils 12.7, and UDS positive for amphetamines . CT abdomen showed intrauterine device, abnormally thickened endometrial complex up to 21 mm with extensive fluid and gas foci, surrounding pelvic inflammatory stranding concerning for infection/abscess/infected IUD/PID. Patient was admitted for further workup and monitoring. VICE PRESIDENT OF PROCUREMENT was consulted and the IUD was removed. The next day she stated that during the night she felt a popping sensation in lower abdomen followed by bloody and purulent vaginal discharge. Additionally, mentioned a headache, questionable bloody bowel movement, and dizziness. Vitals were stable. Follow-up labs showed improving leukocytosis. Cultures were negative. Patient stated that she wishes to be off morphine, stating that it causes itching in her scalp and gives her headaches. She was started on tramadol. There was difficulty maintaining an IV line, so a new line was placed with ultrasound. Laboratory showed the patient is hepatitis-C positive. Patient was asked to follow up outpatient for hep C RNA testing and IV antibiotic management. We will continue to follow. Patient still had intense lower abdominal pain for which tramadol was increased to 100mg daily as needed. Pelvic ultrasound showed cluster of echogenic structures adjacent to the endometrium, possibly blood products or small locules of gas. Repeat pelvis ultrasound to be done today as transvaginal ultrasound was pending. the TLC is showing a downward trend. Repeat pelvic ultrasound (transvaginal) showed endometrial thickness of 5.6mm and multiple nabothian cysts. She still complained of abdominal pain for which she was prescribed ketorolac 15mg q8 prn. director of professional services consult was called to facilitate living situation. The patient was feeling better and mentioned she wants to go to a friend's house and not a care home. Eyes: No Pain, No Vision change, No Conjunctivae inflammation, No Eyelid inflammation, No Other, No Redness ENT: No Ear pain, No Ear discharge, No Nose pain, No Nose discharge, No Nose congestion, No Mouth pain, No Mouth swelling, No Throat pain, No Throat swelling, No Other Cardiovascular: No Chest Pain, No Palpitations, No Orthopnea, No Paroxysmal No Dyspnea, No Edema, No Lt Headedness, No Other Respiratory: No Cough, No Dry, No Shortness of breath, No SOB with exertion, No Wheezing, No Hemoptysis, No Pleuritic Pain, No Sputum, No Other Gastrointestinal: Abdominal Pain, No Diarrhea, No Constipation, No Melena, No Hematochezia, No Other Genitourinary: No Dysuria, No Frequency, No Incontinence, No Hematuria, No Retention, No Other General Appearance: Cooperative. Well developed. Well nourished, moderate distress Head Exam: Normal inspection Neck Exam: Normal inspection. Non-tender. Normal alignment Pulmonary/Respiratory: Chest non-tender. Clear bilateral breath sounds, no crackles, no wheezing. Cardiovascular/Chest: Regular rate and rhythm. No murmurs. No JVD. Peripheral Pulses: 2+ Radial (R). 2+ Radial (L). 2+ Pedal (R). 2+ Pedal (L) Abdominal Exam: Normal bowel sounds. Soft. normal abdomen, no visible veins, tenderness in lower abdomen, No hepatospenomegaly. No masses Ankle Exam: Negative ankle edema Lower extremities: Negative lower extremity edema Neuro/Mental Status: A&O x4. Coherent. Condition at Discharge: Stable Final Diagnosis/Problems List #acute endometritis likely due to IUD infection #probable pelvic abscess #likely PID #sepsis due to above #acute complicated UTI with possible pyelonephritis #hyponatremia,asymptomatic #hypokalemia #methamphetamine use #homeless Discharge Disposition: Home Discharge Instruct/Medications Diet: Regular Activity: No Restrictions, As Tolerated Follow Up/Referral: please follow up with PCP in 1 week follow in dc clinic follow up with obgyn Medications: doxycyline 100 mg bid metronidazole 500mg bid Scheduled Amoxicillin & Pot Clavulanate (Augmentin Tablet), 875 MG PO BID Diclofenac Potassium (Diclofenac Potassium), 1 TAB PO TIDP Doxycycline (Monohydrate) (Doxycycline), 100 MG PO BID Hydrocodone-Acetaminophen (Hydrocodone Bitartrate/AC 5-325 mg), 1 TAB PO TID Ibuprofen Micronized (Ibuprofen), 600 MG PO TID Metronidazole (Metronidazole), 500 MG PO TID Discharge Statement: "Patient was advised to return to the ER or call 911 if any headaches, dizziness, shortness of breath, chest pain, abdominal pain, bleeding, fevers, or worsening of medical condition. Patient was counseled about treatment plan, medications, possible side effects, patientverbalized understanding. All questions were answered to the best of my ability. This discharge took greater then 30 minutes in planning, reviewing documentation, counseling the patient, and discussing with other team members." ASSESSMENT ASSESSMENT Assessment #acute endometritis likely due to IUD infection #probable pelvic abscess #likely PID #sepsis due to above #acute complicated UTI with possible pyelonephritis #hyponatremia,asymptomatic #hypokalemia #methamphetamine use #homeless SANDRO MCMAHON RESIDENT Jan 04, 2025 15:35
== END 2025-01-04 12:15 | disposition home or self-care (01) | DRG 466 ==
LOC: ER 15:47 → OVERFLOW 21:49 → WEST WING 12-30 13:26
PROVIDERS: ADMIT Internal Medicine Geriatric Medicine; ATTEND Emergency Medicine
PROC: 0UPDXHZ Removal of Contraceptive Device from Uterus and Cervix, External Approach (ICD-10-PCS; 2024-12-29)
PROC: 05H933Z Insertion of Infusion Device into Right Brachial Vein, Percutaneous Approach (ICD-10-PCS; principal; 2025-01-02)
PROC: B54MZZA Ultrasonography of Right Upper Extremity Veins, Guidance (ICD-10-PCS; 2025-01-02)
DX: T83.69XA Infection and inflammatory reaction due to other prosthetic device, implant and graft in genital tract, initial encounter (principal); A41.9 Sepsis, unspecified organism; E87.1 Hypo-osmolality and hyponatremia; N12 Tubulo-interstitial nephritis, not specified as acute or chronic; N71.0 Acute inflammatory disease of uterus; E86.0 Dehydration; N73.9 Female pelvic inflammatory disease, unspecified; B19.20 Unspecified viral hepatitis C without hepatic coma; E87.6 Hypokalemia; F17.210 Nicotine dependence, cigarettes, uncomplicated; F15.10 Other stimulant abuse, uncomplicated; G56.03 Carpal tunnel syndrome, bilateral upper limbs; R59.0 Localized enlarged lymph nodes; Y83.8 Other surgical procedures as the cause of abnormal reaction of the patient, or of later complication, without mention of misadventure at the time of the procedure; Z59.00 Homelessness unspecified; Z88.8 Allergy status to other drugs, medicaments and biological substances; Z71.51 Drug abuse counseling and surveillance of drug abuser; Y92.89 Other specified places as the place of occurrence of the external cause; Z79.899 Other long term (current) drug therapy; N88.8 Other specified noninflammatory disorders of cervix uteri
CPT/HCPCS: 36415; 71045; 74176; 76830; 76856; 80048; 80053; 80307; 81001; 81025; 82670; 83001; 83036; 83605; 83690; 85025; 86703; 86780; 86803; 87040; 87070; 87075; 87076; 87340; 96361; 96374; 96375; G0378; J0694; J1450; J1885; J2003; J2405; J3490